=== PATIENT | female | born 1965 | race Two or more races ===

== ENCOUNTER 2024-07-30 06:44 | Inpatient (IN) | payer BC ==
[2024-07-27 12:27] LABS: Urine Bacteria None Seen /hpf (None Seen)
[2024-07-27 13:31] LABS: Urine Blood Negative /uL (Negative); Urine Clarity Clear (Clear); Urine Color Light-Yellow (Yellow); Urine Protein, UAD TRACE (Negative); Urine Specific Gravity 1.018 (1.001-1.035); Urine Urobilinogen Normal (Negative); Urine WBC <1 /hpf (0 - 5); Urine pH 5.5 (5.0-9.0)
[2024-07-27 13:35] LABS: Basophils # (auto) 0.1 10 ^3/uL (0-0.2); Basophils % (auto) 0.9 % (0.0-2.0); Eosinophils # (auto) 0.2 10 ^3/uL (0-0.8); Eosinophils % (auto) 2.5 % (0.0-7.0); Hematocrit 38.7 % (36.0-46.0); Hemoglobin 12.9 g/dL (12.2-16.2); Lymphocytes # (auto) 1.2 10 ^3/uL (0.4-5.4); Lymphocytes % (auto) 17.3 % (10.0-50.0); Mean Corpuscular Hemoglobin 30.6 pg (28.0-32.0); Mean Corpuscular Hgb Conc. 33.4 g/dL (32.0-36.0); Mean Corpuscular Volume 91.7 fL (80.0-100.0); Monocytes # (auto) 0.4 10 ^3/uL (0-1.3); Neutrophils # (auto) 5.2 10 ^3/uL (1.6-8.6); Neutrophils % (auto) 73.3 % (37.0-80.0); Platelet Count (auto) 346 10^3/uL (140-450); Red Blood Cells 4.22 10^6/uL (4.0-5.20); Red Cell Distribution Width 13.6 % (11.8-14.3); White Blood Cell 7.1 10^3/uL (4.4-10.8)
[2024-07-27 13:45] LABS: INR 0.95 (0.9-1.15); Prothrombin Time 10.1 sec (9.3-11.8)
[2024-07-27 13:59] LABS: Alanine Aminotransferase 11 U/L (7-40); Albumin 4.5 g/dL (3.2-4.8); Alkaline Phosphatase 81 U/L (46-116); Anion Gap 6 (5-15); Aspartate Aminotransferase 9 U/L (13-40); BUN/Creatinine Ratio 15.2 (10.0-20.0); Blood Urea Nitrogen 28 mg/dL (9-23); Calcium 9.7 mg/dL (8.7-10.4); Carbon Dioxide 23 mmol/L (20-31); Chloride 113 mmol/L (98-107); Glucose 87 mg/dL (74-106); Sodium 142 mmol/L (136-145)
[2024-07-27 14:00] LABS: Bilirubin, Total 0.3 mg/dL (0.2-1.0); Total Protein 7.2 g/dL (5.7-8.2)
[~2024-07-30] VITALS: Ht 160 cm; Wt 106.8 kg
[~2024-07-30 06:44] MED LIST: AMLO1TAB23 PO; DAPA1TAB4 PO; LISI20TA56 PO
[2024-07-30] MEDS: CEFEPIME 1GM/ 50ML 50 ML IV ONE (07:38)
[2024-07-30] MEDS: ceFAZolin 2 GM/D5W100ml 100 ML IV ONE ×2 (07:46→08:19)
[2024-07-30] MEDS ORDERED: KETOROLAC TROMETH 30 MG/ML 1ML VIAL ONE (08:07)
[2024-07-30] MEDS ORDERED: DexAMETHasone SOD PHOS 10MG/1ML VIAL INJ ONE ×2 (08:07→09:15)
[2024-07-30] MEDS ORDERED: ONDANSETRON HCL 4 MG/2 ML VIAL ONE (08:07)
[2024-07-30] MEDS ORDERED: LIDOCAINE 1% INJ PF 5ML AMP ONE (08:07)
[2024-07-30] MEDS ORDERED: PROPOFOL 10 MG/ML 20 ML IV ONE ×3 (08:08→10:36)
[2024-07-30] MEDS ORDERED: KETAMINE 50mg/ML 1ml syringe ONE (08:08)
[2024-07-30] MEDS ORDERED: GLYCOPYRROLATE 0.2 MG/ML 1ML VIAL ONE (08:08)
[2024-07-30] MEDS: ACETAMINOPHEN IV 1000 MG/100ML (10MG/ML) IV ONE (08:15)
[2024-07-30] MEDS: PREGABALIN CAPSULE 75 MG CAP PO ONE (08:15)
[2024-07-30] MEDS: CELECOXIB 100 MG CAP PO ONE (08:15)
[2024-07-30] MEDS: CELECOXIB 100 MG CAP ONE (08:22)
[2024-07-30] MEDS: TRANEXAMIC ACID 20 ML ONE (09:07)
[2024-07-30] MEDS ORDERED: ONDANSETRON HCL 4 MG/2 ML VIAL IV PRN ×2 (09:30→11:00)
[2024-07-30] MEDS: LACTATED RINGER'S 1,000 ML IV SCH (09:30)
[2024-07-30] MEDS ORDERED: HYDROmorphone HCL 2 MG/ML VL/or syr IV PRN ×2 (09:30→11:00)
[2024-07-30] MEDS ORDERED: NITROGLYCERIN 0.4 MG SL TAB SL PRN (09:30)
[2024-07-30] MEDS ORDERED: MORPHINE SULFATE INJ 2 MG/ml SYRG IV PRN (09:30)
[2024-07-30] MEDS ORDERED: ePHEDrine SULFATE 50 MG/ML AMP ONE (09:58)
[2024-07-30] MEDS: LISINOPRIL 20 MG TAB PO SCH (10:00)
[2024-07-30] MEDS: PANTOPRAZOLE 40 MG/10 ML VIAL INJ IV SCH (10:00)
[2024-07-30] MEDS: DOCUSATE SOD 100 MG CAP PO SCH (10:00)
[2024-07-30] MEDS ORDERED: PATIENTS OWN MEDICATION (Amlodipine Besylate 1 TAB) PO SCH (10:00)
[2024-07-30] MEDS: BUPIVACAINE 0.25% INJ 50ML VIAL ONE (10:15)
[2024-07-30] MEDS: KETOROLAC TROMETH 30 MG/ML 1ML VIAL ONE (10:15)
[2024-07-30] MEDS: MORPHINE SULF PF 5 MG/10 ML VIAL ONE (10:15)
[2024-07-30] MEDS: VANCOMYCIN HCL 1000 MG VL ONE (10:20)
[2024-07-30 10:48] VITALS: PULSE 89; RESP 13; O2SAT 99
[2024-07-30] MEDS ORDERED: NALOXONE HCL 0.4 MG/ML VIAL IV PRN (11:00)
[2024-07-30] MEDS ORDERED: hydrALAZINE HCL 20 MG/ML VL IV PRN (11:00)
[2024-07-30] MEDS ORDERED: FLUMAZENIL 0.1 MG/ML INJ 10ML MDV IV PRN (11:00)
[2024-07-30] MEDS ORDERED: fentaNYL CITRATE 100 MCG/2 ML VL IV PRN (11:00)
[2024-07-30] MEDS ORDERED: ePHEDrine SULFATE 50 MG/ML AMP IV PRN (11:00)
[2024-07-30] MEDS: ACCU-CHEK COMFORT CURVE STRIP VI SCH (11:30)
[2024-07-30] MEDS ORDERED: LABETALOL HCL 20 MG/4 ML VL IV PRN (12:45)
[2024-07-30] MEDS: SOD CHL 0.45% 1,000 ML IV SCH (13:10)
[2024-07-30] MEDS ORDERED: KETOROLAC TROMETH 30 MG/ML 1ML VIAL IV SCH (14:00)
[2024-07-30] MEDS ORDERED: ceFAZolin 2 GM/D5W50ml 50 ML IV SCH (14:00)
[2024-07-30 17:00] VITALS: BP 133/64; PULSE 94; RESP 18; TEMP 97.8; O2SAT 93
[2024-07-30] MEDS: OXYCODONE W/ ACETAMINOPHEN 5/325MG TABLET PO PRN (17:29)
[2024-07-30] MEDS: ceFAZolin 2 GM/D5W50ml 50 ML IV SCH (17:30)
[2024-07-30 22:00] VITALS: BP 137/61; PULSE 74; RESP 16; TEMP 98.1; O2SAT 92
[2024-07-30] MEDS: HYDROmorphone HCL 2 MG/ML VL/or syr IV PRN (22:14)
[2024-07-31 01:00] VITALS: BP 117/60; PULSE 61; RESP 16; TEMP 98; O2SAT 92
[2024-07-31 05:00] VITALS: BP 131/71; PULSE 66; RESP 16; TEMP 97.7; O2SAT 94
[2024-07-31] MEDS: SODIUM CHLOR 0.9% PF (SALINE LOCK) 10ML VIAL/SYR IV SCH (06:08)
[2024-07-31 07:07] LABS: Basophils # (auto) 0 10 ^3/uL (0-0.2); Basophils % (auto) 0.1 % (0.0-2.0); Eosinophils # (auto) 0 10 ^3/uL (0-0.8); Hematocrit 30.8 % (36.0-46.0); Hemoglobin 10.2 g/dL (12.2-16.2); Lymphocytes # (auto) 0.7 10 ^3/uL (0.4-5.4); Lymphocytes % (auto) 5.7 % (10.0-50.0); Mean Corpuscular Hemoglobin 30.4 pg (28.0-32.0); Mean Corpuscular Hgb Conc. 33.1 g/dL (32.0-36.0); Mean Corpuscular Volume 91.9 fL (80.0-100.0); Monocytes # (auto) 0.7 10 ^3/uL (0-1.3); Monocytes % (auto) 5.5 % (0.0-12.0); Neutrophils % (auto) 88.7 % (37.0-80.0); Platelet Count (auto) 276 10^3/uL (140-450); Red Blood Cells 3.35 10^6/uL (4.0-5.20); Red Cell Distribution Width 13.4 % (11.8-14.3); White Blood Cell 12.4 10^3/uL (4.4-10.8)
[2024-07-31 07:25] LABS: Albumin 3.7 g/dL (3.2-4.8); Alkaline Phosphatase 63 U/L (46-116); Anion Gap 7 (5-15); Aspartate Aminotransferase 8 U/L (13-40); BUN/Creatinine Ratio 14.3 (10.0-20.0); Blood Urea Nitrogen 32 mg/dL (9-23); Calcium 9.2 mg/dL (8.7-10.4); Carbon Dioxide 19 mmol/L (20-31); Chloride 109 mmol/L (98-107); Glucose 114 mg/dL (74-106); Potassium 5.2 mmol/L (3.5-5.1)
[2024-07-31 07:26] LABS: Bilirubin, Total 0.2 mg/dL (0.2-1.0)
[2024-07-31 07:27] LABS: Alanine Aminotransferase < 9 U/L (7-40); Sodium 135 mmol/L (136-145)
[2024-07-31 08:00] VITALS: PULSE 70
[2024-07-31] MEDS: ENOXAPARIN SOD 40 MG/0.4 ML SYRINGE SC SCH (09:08)
[2024-07-31] MEDS: CEFEPIME 1GM/ 50ML 50 ML IV SCH (09:09)
[2024-07-31] MEDS: amLODIPine BESYLATE 5 MG TAB PO SCH (09:53)
[2024-07-31] MEDS ORDERED: amLODIPine BESYLATE 5 MG TAB PO SCH (10:00)
[2024-07-31 13:37] VITALS: BP 141/54; TEMP 36.5
[2024-07-31] MEDS: SODIUM ZIRCONIUM CYCL 10 GM PAK PO ONE (14:16)
[2024-07-31] MEDS: oxyCODONE HCL 5MG TAB PO PRN (14:16)
[2024-07-31 17:00] VITALS: BP 123/58; PULSE 73; RESP 20; TEMP 97.8; O2SAT 96
[2024-07-31 20:57] VITALS: BP 106/35; PULSE 73; RESP 18; TEMP 98.5; O2SAT 98
[2024-07-31] MEDS: OXYCODONE W/ ACETAMINOPHEN 5/325MG TABLET PO ONE (22:40)
[2024-08-01 01:00] VITALS: BP 130/49; PULSE 72; RESP 18; TEMP 98.2; O2SAT 95
[2024-08-01 05:00] VITALS: BP 119/58; PULSE 75; RESP 18; TEMP 97.5; O2SAT 95
[2024-08-01 06:13] LABS: Hematocrit 27.2 % (36.0-46.0); Hemoglobin 9.1 g/dL (12.2-16.2)
[2024-08-01 06:33] LABS: Anion Gap 5 (5-15); Carbon Dioxide 20 mmol/L (20-31); Chloride 112 mmol/L (98-107); Potassium 4.7 mmol/L (3.5-5.1); Sodium 137 mmol/L (136-145)
[2024-08-01 06:34] LABS: Calcium 8.9 mg/dL (8.7-10.4)
[2024-08-01 06:39] LABS: BUN/Creatinine Ratio 14.9 (10.0-20.0); Blood Urea Nitrogen 33 mg/dL (9-23); Glucose 92 mg/dL (74-106)
[2024-08-01 09:00] VITALS: BP 132/81; PULSE 66; RESP 16; TEMP 98.1; O2SAT 97
[2024-08-01 13:00] VITALS: BP 130/66; PULSE 71; RESP 18; TEMP 98; O2SAT 95
== END 2024-08-01 18:00 | disposition home or self-care (01) | DRG 470 ==
LOC: SUR 06:44 → OVERFLOW 10:56 → WEST WING 16:30
PROVIDERS: ADMIT Orthopaedic Surgery Adult Reconstructive Orthopaedic Surgery; ATTEND Internal Medicine
PROC: 0SRC0J9 Replacement of Right Knee Joint with Synthetic Substitute, Cemented, Open Approach (ICD-10-PCS; principal; 2024-07-30 09:20)
DX: M17.11 Unilateral primary osteoarthritis, right knee (principal); Z68.41 Body mass index [BMI] 40.0-44.9, adult; N17.9 Acute kidney failure, unspecified; N18.32 Chronic kidney disease, stage 3b; I12.9 Hypertensive chronic kidney disease with stage 1 through stage 4 chronic kidney disease, or unspecified chronic kidney disease; E66.9 Obesity, unspecified; E87.5 Hyperkalemia; Z88.3 Allergy status to other anti-infective agents
CPT/HCPCS: 36415; 71045; 73562; 80048; 80053; 81001; 82962; 85014; 85018; 85025; 85610; 85730; 86850; 86900; 86901; 97110; 97116; 97163; 97530; G0378; J0131; J1100; J1885; J2405; J2470; J2704; J3490

== ENCOUNTER 2024-12-10 06:29 | Observation (INO) | payer BC ==
[~2024-12-10] VITALS: Ht 160 cm; Wt 116.0 kg
[~2024-12-10 06:29] MED LIST changes: +ALLO100T PO
[2024-12-10] MEDS ORDERED: PHENYLEPHRINE HCL 10 MG/ML VL ONE (06:48)
[2024-12-10] MEDS ORDERED: fentaNYL CITRATE 100 MCG/2 ML VL ONE (06:49)
[2024-12-10] MEDS ORDERED: PROPOFOL 10 MG/ML 20 ML IV ONE ×2 (08:02→08:04)
[2024-12-10] MEDS ORDERED: MIDAZOLAM HCL 2MG/2ML 2ml VIAL (1mg/ml) ONE (08:05)
[2024-12-10] MEDS: CELECOXIB 100 MG CAP PO ONE (08:30)
[2024-12-10] MEDS: ACETAMINOPHEN IV 1000 MG/100ML (10MG/ML) IV ONE (08:30)
[2024-12-10] MEDS: PREGABALIN CAPSULE 75 MG CAP PO ONE (08:30)
[2024-12-10] MEDS: ACETAMINOPHEN IV 100 ML IV ONE (08:45)
[2024-12-10] MEDS: CEFEPIME 1GM/ 50ML 50 ML IV ONE (09:00)
[2024-12-10] MEDS: ceFAZolin 2 GM/D5W100ml 100 ML IV ONE ×2 (09:00→14:36)
[2024-12-10] MEDS ORDERED: ePHEDrine SULFATE 50 MG/ML AMP ONE (09:09)
[2024-12-10] MEDS: TRANEXAMIC ACID 20 ML ONE (09:30)
[2024-12-10] MEDS: VANCOMYCIN HCL 1000 MG VL ONE (10:00)
[2024-12-10] MEDS: MORPHINE SULF PF 5 MG/10 ML VIAL ONE (10:09)
[2024-12-10] MEDS: BUPIVACAINE 0.25% INJ 50ML VIAL ONE (10:09)
[2024-12-10] MEDS: KETOROLAC TROMETH 30 MG/ML 1ML VIAL ONE (10:09)
[2024-12-10] MEDS ORDERED: NITROGLYCERIN 0.4 MG SL TAB SL PRN (10:15)
[2024-12-10] MEDS ORDERED: HYDROmorphone HCL 2 MG/ML VL/or syr IV PRN ×2 (10:15→10:45)
[2024-12-10] MEDS ORDERED: ONDANSETRON HCL 4 MG/2 ML VIAL IV PRN (10:15)
[2024-12-10] MEDS ORDERED: MORPHINE SULFATE INJ 2 MG/ml SYRG IV PRN (10:15)
[2024-12-10 10:31] VITALS: PULSE 80; RESP 13; O2SAT 97
[2024-12-10] MEDS ORDERED: ACETAMINOPHEN IV 1000 MG/100ML (10MG/ML) IV PRN (10:45)
[2024-12-10] MEDS ORDERED: ONDANSETRON HCL 4 MG/2 ML VIAL IV ONE (10:45)
--- NOTE | 2024-12-10 11:48 | DVH ---
EXAM: XY L KNEE 3V XRAY CLINICAL INDICATION: S/P SURGERY TECHNIQUE: XY L KNEE 3V XRAY Comparison: XY R KNEE 3V XRAY on DOS: 07/30/24 FINDINGS/IMPRESSION: There is no evidence of acute fracture or dislocation. Left total knee arthroplasty. Surgical skin williams are present.
[2024-12-10] MEDS: SODIUM CHLOR 0.9% PF (SALINE LOCK) 10ML VIAL/SYR IV SCH (14:00)
[2024-12-10] MEDS: ceFAZolin 2 GM/D5W50ml 50 ML IV SCH (14:28)
[2024-12-10] MEDS: ceFAZolin 1GM/50ML 0 ML IV ONE (14:30)
--- NOTE | 2024-12-10 14:38 | DVHHP2 ---
Review of Systems Allergies: Coded Allergies: Sulfamethoxazole w/Trimethoprim (Verified Allergy, Intermediate, Rash, 07/27/24) Medications Current Medications Medications Dose Ordered Sig/Mike Route Start Time Stop Time Status Last Admin Dose Admin Lisinopril 20 mg DAILY PO 12/11/24 10:00 Amlodipine Besylate 10 mg DAILY PO 12/11/24 10:00 Lactated Ringer's 1,000 ml @ 100 mls/hr Q10H IV 12/10/24 10:15 Sodium Chloride 10 ml Q8HR IV 12/10/24 14:00 Oxycodone/ Acetaminophen 1 tab Q4HP PRN PO 12/10/24 10:15 Hydromorphone HCl 1 mg Q2HP PRN IV 12/10/24 10:15 Oxycodone HCl 10 mg Q12HR PO 12/10/24 22:00 Ondansetron HCl 4 mg Q6HP PRN IV 12/10/24 10:15 Docusate Sodium 100 mg Q12HR PO 12/10/24 22:00 Enoxaparin Sodium 40 mg DAILY SC 12/11/24 10:00 Nitroglycerin 0.4 mg Q5MINP PRN SL 12/10/24 10:15 Morphine Sulfate 2 mg Q30M PRN IV 12/10/24 10:15 Cefazolin Sodium/ Dextrose 50 ml @ 50 mls/hr Q8HR IV 12/10/24 14:00 12/11/24 06:59 12/10/24 14:37 50 MLS/HR Cefepime HCl 50 ml @ 12.5 mls/hr DAILY IV 12/11/24 10:00 Exam Vital Signs Vital Signs Date Time Temp Pulse Resp B/P (MAP) Pulse Ox O2 Delivery O2 Flow Rate FiO2 12/10/24 12:15 76 79 101/51 (68) 12/10/24 11:45 97 12/10/24 10:31 97.2 97.2 12/10/24 10:31 Mask 6.0 97 Assessment/Plan Assessment/Plan see dictated note Plan discussed with: Patient Date of Service: Dec 10, 2024 Billing Provider: BELEN JOVEL MD Common Visit Codes: [id number] INP/OBS CARE (HIGH) BELEN JOVEL MD Dec 10, 2024 14:38
--- NOTE | 2024-12-10 15:02 | DVHHP ---
ADMIT DATE: 12/10/2024 HISTORY OF PRESENT ILLNESS: The patient is a 59-year-old lady who was admitted after she underwent surgery on the left knee for DJD of the knee. The patient at this time denies any pain. No chest pain or shortness of breath. No nausea or vomiting. REVIEW OF SYSTEMS: Review of rest of systems are otherwise currently negative. PAST MEDICAL HISTORY: Significant for hypertension, chronic kidney disease, gout. MEDICATIONS: She takes allopurinol, Norvasc, Farxiga and lisinopril. ALLERGIES: BACTRIM. SOCIAL HISTORY: Denies smoking or alcohol. Lives at home with family. FAMILY HISTORY: Negative. PHYSICAL EXAMINATION: GENERAL: The patient is awake, alert. VITAL SIGNS: Temperature of 97.2, pulse is 75 per minute, blood pressure 123/59. SHEENT: Unremarkable. NECK: There is no JVD, no pedal edema. LUNGS: Equal bilaterally. No added sounds. CARDIOVASCULAR SYSTEM: S1, S2 is regular, no murmurs. ABDOMEN: Soft. There is no organomegaly. NEUROLOGIC: Nonfocal. MUSCULOSKELETAL: There is a dressing at the site of the left knee surgery. ASSESSMENT AND PLAN: * Chronic kidney disease, stage 3. The patient's kidney function will be monitored. * Hypertension. * Gout. * Obesity. * Status post left knee surgery for degenerative joint disease of the knee. The patient will be placed on physical therapy and deep venous thrombosis prophylaxis. MD KATIUSKA Branham/JANE TID: [id number] RECEIPT: [id number]
[2024-12-10] MEDS: HYDROmorphone HCL 2 MG/ML VL/or syr IV PRN (15:38)
[2024-12-10 16:30] VITALS: BP 114/66; PULSE 85; RESP 18; O2SAT 96
[2024-12-10] MEDS: oxyCODONE ER 10 MG TAB PO SCH (16:46)
[2024-12-10 20:00] VITALS: PULSE 85; RESP 18; O2SAT 96
[2024-12-10] MEDS: LACTATED RINGER'S 1,000 ML IV SCH (20:15)
[2024-12-10] MEDS: DOCUSATE SOD 100 MG CAP PO SCH (20:53)
[2024-12-10] MEDS: OXYCODONE W/ ACETAMINOPHEN 5/325MG TABLET PO PRN (20:54)
[2024-12-10 21:00] VITALS: BP 123/58; PULSE 84; RESP 20; TEMP 97.5; O2SAT 97
[2024-12-11] VITALS (7 sets, daily range): BP systolic 89–125; BP diastolic 44–71; PULSE 68–87; RESP 17–20; TEMP 97.5–98.1; O2SAT 94–98
[2024-12-11 07:17] LABS: Basophils # (auto) 0 10 ^3/uL (0-0.2); Basophils % (auto) 0.4 % (0.0-2.0); Eosinophils # (auto) 0.1 10 ^3/uL (0-0.8); Eosinophils % (auto) 1.7 % (0.0-7.0); Hematocrit 30.6 % (36.0-46.0); Hemoglobin 9.8 g/dL (12.2-16.2); Lymphocytes # (auto) 0.6 10 ^3/uL (0.4-5.4); Lymphocytes % (auto) 9.7 % (10.0-50.0); Mean Corpuscular Hgb Conc. 32.1 g/dL (32.0-36.0); Mean Corpuscular Volume 93.3 fL (80.0-100.0); Monocytes # (auto) 0.5 10 ^3/uL (0-1.3); Monocytes % (auto) 7.3 % (0.0-12.0); Neutrophils # (auto) 5.1 10 ^3/uL (1.6-8.6); Neutrophils % (auto) 80.9 % (37.0-80.0); Nucleated Red Blood Cells % 0.1 %; Platelet Count (auto) 275 10^3/uL (140-450); Red Blood Cells 3.28 10^6/uL (4.0-5.20); White Blood Cell 6.3 10^3/uL (4.4-10.8)
[2024-12-11 07:23] LABS: Albumin 3.8 g/dL (3.2-4.8); Alkaline Phosphatase 70 U/L (46-116); Anion Gap 9 (5-15); BUN/Creatinine Ratio 13.3 (10.0-20.0); Bilirubin, Total 0.3 mg/dL (0.2-1.0); Calcium 8.7 mg/dL (8.7-10.4); Carbon Dioxide 21 mmol/L (20-31); Chloride 103 mmol/L (98-107); Total Protein 6.2 g/dL (5.7-8.2)
[2024-12-11 07:43] LABS: Blood Urea Nitrogen 38 mg/dL (9-23); Glucose 151 mg/dL (74-106); Sodium 133 mmol/L (136-145)
[2024-12-11 07:45] LABS: Alanine Aminotransferase < 9 U/L (7-40); Aspartate Aminotransferase 11 U/L (13-40)
[2024-12-11 07:47] LABS: Potassium 5.7 mmol/L (3.5-5.1)
--- NOTE | 2024-12-11 08:04 | DVHDS2 ---
Discharge Summary Date of Admission Dec 10, 2024 at 10:09 Date of Discharge: Dec 11, 2024 Wounds: 1. You will likely have a gel-type dressing over your wound, you may keep this on for 7-14 days after leaving the hospital until your first post-op visit, unless it becomes soiled or your skin becomes irritated. If a wound vac dressing is placed on your knee this is to be left in place for one week and will be changed as needed. After your remove the dressing or wound vac, the home health nurse may place clean dry dressing over your wound. Keep wound covered, clean and dry for two weeks. 2. Farhad will be removed during your initial post-op visit. If you have concerns about our wound, please call the office immediately. If nervous about staple removal can take pain pill one hour prior to appointment. 3. If there is drainage from your wound, change the dressing daily until it stops. If drainage lasts more than 10 days, call our office. 4. Low grade (up to 100 degrees) fever is common for the first week after surgery. You should take your temperature daily. If you have fevers of 101 or more, please call the office. Labs/Diagnostic Data: Laboratory Results Test 12/11/24 05:50 White Blood Count 6.3 10^3/uL (4.4-10.8) Red Blood Count 3.28 10^6/uL (4.0-5.20) Hemoglobin 9.8 g/dL (12.2-16.2) Hematocrit 30.6 % (36.0-46.0) Mean Corpuscular Volume 93.3 fL (80.0-100.0) Mean Corpuscular Hemoglobin 30.0 pg (28.0-32.0) Mean Corpuscular Hemoglobin Concent 32.1 g/dL (32.0-36.0) Red Cell Distribution Width 17.0 % (11.8-14.3) Platelet Count 275 10^3/uL (140-450) Mean Platelet Volume 8.0 fL (6.9-10.8) Neutrophils (%) (Auto) 80.9 % (37.0-80.0) Lymphocytes (%) (Auto) 9.7 % (10.0-50.0) Monocytes (%) (Auto) 7.3 % (0.0-12.0) Eosinophils (%) (Auto) 1.7 % (0.0-7.0) Basophils (%) (Auto) 0.4 % (0.0-2.0) Neutrophils # (Auto) 5.1 10 ^3/uL (1.6-8.6) Lymphocytes # (Auto) 0.6 10 ^3/uL (0.4-5.4) Monocytes # (Auto) 0.5 10 ^3/uL (0-1.3) Eosinophils # (Auto) 0.1 10 ^3/uL (0-0.8) Basophils # (Auto) 0 10 ^3/uL (0-0.2) Nucleated Red Blood Cells 0.1 % Sodium Level 133 mmol/L (136-145) Potassium Level 5.7 mmol/L (3.5-5.1) Chloride Level 103 mmol/L (98-107) Carbon Dioxide Level 21 mmol/L (20-31) Anion Gap 9 (5-15) Blood Urea Nitrogen 38 mg/dL (9-23) Creatinine 2.85 mg/dL (0.550-1.02) Glomerular Filtration Rate Calc 18 mL/min (>90) BUN/Creatinine Ratio 13.3 (10.0-20.0) Serum Glucose 151 mg/dL (74-106) Calcium Level 8.7 mg/dL (8.7-10.4) Total Bilirubin 0.3 mg/dL (0.2-1.0) Aspartate Amino Transferase (AST) 11 U/L (13-40) Alanine Aminotransferase (ALT) < 9 U/L (7-40) Alkaline Phosphatase 70 U/L (46-116) Total Protein 6.2 g/dL (5.7-8.2) Albumin 3.8 g/dL (3.2-4.8) Other Laboratory Tests 12/11/24 05:50 Brief Hx & Hospital Course: s/p total knee arthroplasty Condition at Discharge: Good Final Diagnosis/Problems List knee osteoarthritis Discharge Disposition: Home Discharge Instruct/Medications Diet: Regular Diet comment: May advance diet as tolerated, drink plenty of fluids. Avoid alcohol while taking narcotics Activity: See Comment Activity comment: 1.You can bear as much weight as you tolerate on your knee unless specifically instructed otherwise. You may use the walking aid which you were discharged with and switch to a cane whenever you feel comfortable doing so. You should use an assistive device until you can walk comfortably without it. Keep in mind that every patient moves at their own speed of recovery so take your time. 2.A physical therapist will visit you at home. 3.Use CPM machine as instructed (6 hours a day) and increase flexion by 5 degrees daily. 4.High impact activity such as jumping, aerobics, tennis, and skiing are not permitted during the first 3 months after surgery. These activities can contribute to accelerated wear and should be done with caution after this time. Discuss this with your surgeon if you have questions. 5.Although a bath or whirlpool is NOT permitted during the first 2-3 weeks, you may shower as soon as you get home from the hospital provided there is no wound drainage. Place a dressing or covering over the wound when you shower. 6.Swimming is not permitted until the wound is healed, which typically occurs approximately 3-4 weeks after surgery. Follow Up/Referral: 1.Driving is not permitted within the first 2 weeks. 2.Your first postoperative visit will take place 2 weeks after discharge. Please call the office once you are home from the hospital to arrange this appointment. 3.Antibiotic preventative treatment is required before dental or other invasive procedures. Please ask your surgeon about this at your first postoperative visit. If you experience chest pain, shortness of breath or severe painful calf swelling, go to the nearest emergency room to be evaluated. Please call our office once your situation is stabilized. Medications: 1.You will be discharged with pain medication, a blood thinner (unless you were previously on a blood thinner prior to surgery) and stool softener. Please follow the instructions regarding these medications as provided by your nurse at the hospital upon discharge. 2.Blood clots in the leg are a known complication of surgery. It is very important that you take the medication to protect against clots. Depending on what you are discharged on typically it is Lovenox 40mg daily for 2 weeks or Aspirin 81mg twice daily for 4 weeks. After you finish this, you should then take baby Aspirin (81mg) once daily for 2 weeks. 3.You should restart all of your prescription medications once discharged from the hospital/surgery center unless specifically instructed otherwise. 4.Herbal supplements may be restarted 2 weeks after surgery. 5.If you have been given Coumadin as a blood thinner, please follow up with your collections professional during the first two weeks after surgery to review medications and overall medical well-being. 6.Please note that narcotic pain medication may cause constipation. Please remember to take stool softeners (Colace) when using narcotics to help reduce the change of constipation. You should not use alcohol together with narcotic medication. Discharge Statement: "Patient was advised to return to the ER or call 911 if any headaches, dizziness, shortness of breath, chest pain, abdominal pain, bleeding, fevers, or worsening of medical condition. Patient was counseled about treatment plan, medications, possible side effects, patientverbalized understanding. All questions were answered to the best of my ability. This discharge took greater then 30 minutes in planning, reviewing documentation, counseling the patient, and discussing with other team members." ASSESSMENT ASSESSMENT Assessment JALEEL MORRIS NP Dec 11, 2024 08:04
[2024-12-11] MEDS: SODIUM ZIRCONIUM CYCL 10 GM PAK PO ONE (09:20)
[2024-12-11] MEDS: ENOXAPARIN SOD 40 MG/0.4 ML SYRINGE SC SCH (09:26)
[2024-12-11] MEDS: CEFEPIME 1GM/ 50ML 50 ML IV SCH (09:30)
[2024-12-11] MEDS: amLODIPine BESYLATE 5 MG TAB PO SCH (10:00)
[2024-12-11] MEDS ORDERED: LISINOPRIL 20 MG TAB PO SCH (10:00)
--- NOTE | 2024-12-11 12:12 | DVHPN2 ---
Progress Note Date Seen: Dec 11, 2024 Medical Necessity Reason Pt with a Central, PICC or Fol: No Subjective Patient reports: No new complaints Review of Systems: HEENT:Normal, CVS:Normal, RESPIRATORY:Normal, GI:Normal, :Normal, MSK:Normal, NEURO:Normal Objective vital signs Vital Sign Date Time Temp Pulse Resp B/P (MAP) Pulse Ox O2 Delivery O2 Flow Rate FiO2 12/11/24 10:00 90/44 12/11/24 09:59 74 16 12/11/24 09:19 98.0 97 98.0 12/10/24 20:00 Room Air* 0 21 Total Intake and Output 12/10/24 12/10/24 12/11/24 15:00 23:00 07:00 Intake Total 370 ml 400 ml Balance 370 ml 400 ml medications Current Medications Medications Dose Ordered Sig/Mike Route Start Time Stop Time Status Last Admin Dose Admin Amlodipine Besylate 10 mg DAILY PO 12/11/24 10:00 Sodium Chloride 10 ml Q8HR IV 12/10/24 14:00 12/11/24 06:14 10 ML Oxycodone/ Acetaminophen 1 tab Q4HP PRN PO 12/10/24 10:15 12/11/24 05:41 1 TAB Oxycodone HCl 10 mg Q12HR PO 12/10/24 22:00 12/10/24 16:46 10 MG Ondansetron HCl 4 mg Q6HP PRN IV 12/10/24 10:15 Docusate Sodium 100 mg Q12HR PO 12/10/24 22:00 12/11/24 09:24 100 MG Enoxaparin Sodium 40 mg DAILY SC 12/11/24 10:00 12/11/24 09:26 40 MG Nitroglycerin 0.4 mg Q5MINP PRN SL 12/10/24 10:15 Morphine Sulfate 2 mg Q30M PRN IV 12/10/24 10:15 Cefepime HCl 50 ml @ 12.5 mls/hr DAILY IV 12/11/24 10:00 12/11/24 09:30 12.5 MLS/HR Hydromorphone HCl 1 mg Q3HP PRN IV 12/10/24 14:45 12/11/24 09:29 1 MG Examination: GENERAL:Normal, HEENT:Normal, NECK:Normal, LUNGS:Normal, CVS:Normal, ABDOMEN:Normal, MSK:Normal, SKIN:Normal, NEURO:Normal, :Normal laboratory and microbiology Laboratory Tests 12/11/24 05:50 Test 12/11/24 05:50 Range/Units Serum Glucose 151 H 74-106 mg/dL Problem List/Assessment/Plan Problem List/Assessment/Plan * Chronic kidney disease, stage 3. The patient's kidney function will be monitored. * Hyperkalemia: lokelma, repeat K * Hypertension. * Gout. * Obesity. * Status post left knee surgery for degenerative joint disease of the knee. The patient will be placed on physical therapy and deep venous thrombosis prophylaxis. advance care planning- full code- time spent 18 mins Plan discussed with: Patient My Orders My Orders Orders - BELEN JOVEL MD Procedure Category Date Status Time Hydromorphone PHA 12/10/24 In Process Injection (Dilaudid 14:45 Discharge DISCHARGE 12/11/24 Verified 12:04 NS PHA 12/11/24 Verified 12:15 Sodium Zirconium PHA 12/11/24 Verified Cyclosilicate 14:00 Urinalysis LAB 12/11/24 Uncollected 12:04 Basic Metabolic Panel LAB 12/12/24 Verified 06:00 Complete Blood Count LAB 12/12/24 Verified 06:00 * Environmental Resource Specialist CONS 12/11/24 Verified Consult Date of Service: Dec 11, 2024 Billing Provider: BELEN JOVEL MD Common Visit Codes: [id number] INP/OBS CARE(HIGH) Secondary Visit Codes: [id number] CARE PLAN 30 MINUTES BELEN JOVEL MD Dec 11, 2024 12:12
[2024-12-11] MEDS: SODIUM CHLORIDE 0.9% 1,000 ML IV SCH (14:44)
[2024-12-11] MEDS: SODIUM ZIRCONIUM CYCL 10 GM PAK PO SCH (14:52)
--- NOTE | 2024-12-11 15:13 | DVHOP2 ---
Operative Report - 2 Report Details Date: 12/11/24 Preop Diagnosis: Left knee osteoarthritis Postop Diagnosis: Left knee osteoarthritis Surgeon: Jovan Henry MD Anesthesiologist: Lida GIANG Anesthesia: Regional Implant: [employer] Uncemented CR Legion Size 4 CR Tibia size 2 12 mm deep dish insert 29 mm round patella Consent: The patient was informed of the risks and benefits of the procedure. These include but are not limited to complications of anesthesia, postoperative infection, incomplete relief of symptoms, recurrence of symptoms, damage to bl ood vessels, nerves and tendons, deep venous thrombosis, pulmonary embolism and possible need for repeat surgery in the future. Estimated Blood Loss: 50 cc Name of Procedure Performed Left total knee arthroplasty using computer navigation Procedure Details Procedure Details: FINDINGS: degenerative disease with grade IV changes with varus deformity INDICATION: This patient has failed non-operative treatments for knee arthritis and is now indicated for a total knee replacement. Preoperatively in the waiting area as well as in the office, I had a long discussion with the patient regarding the plan, the expected outcome, the risks, benefits, and alternatives of surgery. The risks include, but are not limited to, infection (which may require future surgery and removal of implants) , bleeding (which may require a transfusion), damage to nerves, arteries, veins, tendons, muscles and other adjacent structures. Also discussed the possibilities of intraoperative fractures, implant loosening, heterotopic bone formation, and revision for variety of reasons, and medical complications etc. This was discussed at length and consent has been obtained. DESCRIPTION OF PROCEDURE: In the preoperative holding area, the consent was reviewed and the appropriate extremity was verified by the patient and marked with my initials. The patient was then transferred to the operating theatre. Appropriate anesthesia was induced. All bony prominences were well padded. A time out was performed verifying the side and site of surgery according to standard protocol. Preoperative antibiotics were given 10 minutes prior to tourniquet inflation. Tranexamic was given. A well padded thigh tourniquet was applied. The extremity was then prepped and draped in the usual sterile fashion. The extremity was exsanguinated and the tourniquet was inflated. We then made a mid-line incision, which we continued to the underlying capsular tissue. We performed a medial parapatellar arthrotomy. We periosteally exposed the proximal tibia, excised the anterior fat pad and synovium from the distal aspect of the femur. We then subluxed the patella and brought the knee up into flexion. The lateral meniscus, ACL, and PCL were released. We used the appropriate guide with attached computer navigation to secure the distal femoral cutting block to the femur with pins and completed the distal femoral cut in 0 degrees to the mechanical axis with an oscillating saw. We removed the distal f emoral cutting block and turned our attention to the tibia. We used the extramedullary tibial alignment guide with computer navigation to secure the proximal tibial cutting block to the tibia with pins, setting it for a 1mm cut from the more involved side, medially and completed the proximal tibial cut. We then used the spacer block and alignment alda to check the varus- valgus angle of our cuts and the extension gap. Patient noted to be tight medially that was tight so medial release done. The knee was then balanced in extension to varus/valgus stress. We marked our femoral anatomy, including Gibson's line and the epicondylar axis. Using that as a rotational guide, we used the sizing guide to size our femur properly, using a stylus to ensure there would be no notching. We then used the AP cutting guide to make our anterior and posterior cuts and chamfer cuts with an oscillating saw. We again checked the flexion and extension gaps and coronal balancing. Next, we sized our tibia and secured a baseplate with appropriate rotation with pins. We placed a trial femur in position and completed preparation of the notch with reamers and box osteotome and placed a trial notch in position. We used trials to choose our liner size and then placed the liner in place and reduced the knee. We used an oscillating saw to resurface the patella, and used a guide to choose the button size and completed patella preparation with the drill. We then placed a trial button in place. At this point, we checked our seven parameters: 1) Limb alignment 2) Extension 3) Flexion against gravity 4) Flexion stability 5) Varus-valgus balancing 6) Component rotation 7) Patella tracking We were satisfied with these and removed all trials with the exception of the baseplate. We completed preparation of the tibia with the appropriate reamer and keel impactor and then removed the baseplate. We placed a bone plug in the distal femur and then irrigated and dried all bony surfaces and injected our pain cocktail. We thumb impacted into the proximal tibia, distal femur and patella and impacted our tibial, femoral and patellar components into position. We impacted our liner and reduced the knee and held it with axial loading. We did a luan-articular cocktail block. We released the tourniquet and achieved hemostasis where necessary. A dilute betadine solution (17.5mL in 500mL saline) was used to wash the joint and left to sit for 3 minutes. This was then irrigated out with copious amounts of pulse lavage. We sprinkled 1g vancomycin powder below the fascia and 1g above the fascia. We copiously irrigated the knee. We re-checked our seven parameters. We closed our capsular incision with a PDS style suture. We irrigated further. We closed the subcutaneous tissue with Vicryl suture and re-approximated the skin with [place]. We verified all lower extremity compartments were soft and compressible and that we had intact distal pulses. We wrapped the extremity in sterile Webril and allen bandage. The patient was transferred to the recovery room in stable condition. Condition Good Disposition Home JOVAN HENRY MD Dec 11, 2024 15:13
[2024-12-12] VITALS (7 sets, daily range): BP systolic 98–132; BP diastolic 35–61; PULSE 83–104; RESP 14–19; TEMP 97.9–98.3; O2SAT 93–97
[2024-12-12 06:57] LABS: Basophils # (auto) 0 10 ^3/uL (0-0.2); Eosinophils # (auto) 0.2 10 ^3/uL (0-0.8)
[2024-12-12 07:00] LABS: Basophils % (auto) 0.3 % (0.0-2.0); Eosinophils % (auto) 2.9 % (0.0-7.0); Hemoglobin 8.5 g/dL (12.2-16.2); Lymphocytes # (auto) 0.6 10 ^3/uL (0.4-5.4); Lymphocytes % (auto) 7.9 % (10.0-50.0); Mean Corpuscular Hemoglobin 31.6 pg (28.0-32.0); Mean Corpuscular Hgb Conc. 33.9 g/dL (32.0-36.0); Mean Corpuscular Volume 93.2 fL (80.0-100.0); Monocytes # (auto) 0.6 10 ^3/uL (0-1.3); Monocytes % (auto) 8.1 % (0.0-12.0); Neutrophils # (auto) 6.4 10 ^3/uL (1.6-8.6); Neutrophils % (auto) 80.8 % (37.0-80.0); Platelet Count (auto) 195 10^3/uL (140-450); Red Blood Cells 2.68 10^6/uL (4.0-5.20); Red Cell Distribution Width 16.8 % (11.8-14.3); White Blood Cell 7.9 10^3/uL (4.4-10.8)
[2024-12-12 07:14] LABS: Chloride 103 mmol/L (98-107); Potassium 5.1 mmol/L (3.5-5.1)
[2024-12-12 07:15] LABS: Anion Gap 9 (5-15); Carbon Dioxide 19 mmol/L (20-31); Sodium 131 mmol/L (136-145)
[2024-12-12 07:16] LABS: Calcium 8.4 mg/dL (8.7-10.4)
[2024-12-12 07:22] LABS: Blood Urea Nitrogen 44 mg/dL (9-23); Glucose 117 mg/dL (74-106)
--- NOTE | 2024-12-12 11:20 | DVHPN2 ---
Progress Note Date Seen: Dec 12, 2024 Medical Necessity Reason Pt with a Central, PICC or Fol: No Subjective Patient reports: No new complaints Review of Systems: HEENT:Normal, CVS:Normal, RESPIRATORY:Normal, GI:Normal, :Normal, MSK:Normal, NEURO:Normal Objective vital signs Vital Sign Date Time Temp Pulse Resp B/P (MAP) Pulse Ox O2 Delivery O2 Flow Rate FiO2 12/12/24 11:18 95 19 115/65 12/12/24 08:56 97.9 94 97.9 12/12/24 08:00 Room Air* 0 21 Total Intake and Output 12/11/24 12/11/24 12/12/24 15:00 23:00 07:00 Intake Total 50 ml 760 ml 725 ml Balance 50 ml 760 ml 725 ml medications Current Medications Medications Dose Ordered Sig/Mike Route Start Time Stop Time Status Last Admin Dose Admin Sodium Chloride 10 ml Q8HR IV 12/10/24 14:00 12/12/24 06:03 10 ML Oxycodone/ Acetaminophen 1 tab Q4HP PRN PO 12/10/24 10:15 12/12/24 06:40 1 TAB Oxycodone HCl 10 mg Q12HR PO 12/10/24 22:00 12/12/24 09:38 10 MG Ondansetron HCl 4 mg Q6HP PRN IV 12/10/24 10:15 Docusate Sodium 100 mg Q12HR PO 12/10/24 22:00 12/12/24 09:36 100 MG Enoxaparin Sodium 40 mg DAILY SC 12/11/24 10:00 12/12/24 09:36 40 MG Nitroglycerin 0.4 mg Q5MINP PRN SL 12/10/24 10:15 Morphine Sulfate 2 mg Q30M PRN IV 12/10/24 10:15 Cefepime HCl 50 ml @ 12.5 mls/hr DAILY IV 12/11/24 10:00 12/12/24 09:36 12.5 MLS/HR Hydromorphone HCl 1 mg Q3HP PRN IV 12/10/24 14:45 12/12/24 11:18 1 MG Sodium Chloride 1,000 ml @ 75 mls/hr [id number] IV 12/11/24 12:15 12/12/24 09:46 75 MLS/HR Zirconium Oxide 10 gm Q8HR PO 12/11/24 14:00 12/12/24 06:03 10 GM Examination: GENERAL:Normal, HEENT:Normal, NECK:Normal, LUNGS:Normal, CVS:Normal, ABDOMEN:Normal, MSK:Normal, MSK:Abnormal (left knee dressing), SKIN:Normal, NEURO:Normal, :Normal laboratory and microbiology Laboratory Tests 12/12/24 06:09 Test 12/12/24 06:09 Range/Units Serum Glucose 117 H 74-106 mg/dL Problem List/Assessment/Plan Problem List/Assessment/Plan * Chronic kidney disease, stage 3. The patient's kidney function will be monitored. * Hyperkalemia: lokelma, repeat K * Hypertension. * Gout. * Obesity. * Status post left knee surgery for degenerative joint disease of the knee. The patient will be placed on physical therapy and deep venous thrombosis prophylaxis. advance care planning- full code- time spent 18 mins Plan discussed with: Patient My Orders My Orders Orders - BELEN JOVEL MD Procedure Category Date Status Time Discharge DISCHARGE 12/11/24 Transmitted 12:04 Sodium Chloride 0.9% PHA 12/11/24 In Process 12:15 Sodium Zirconium PHA 12/11/24 In Process Cyclosilicate 14:00 Urinalysis LAB 12/11/24 Uncollected 12:04 * Sheet Metal Duct Installer Helper CONS 12/11/24 Transmitted Consult Date of Service: Dec 12, 2024 Billing Provider: BELEN JOVEL MD Common Visit Codes: [id number] INP/OBS CARE(HIGH) BELEN JOVEL MD Dec 12, 2024 11:20
[2024-12-12] MEDS: LACTULOSE 20Gm/30ML SOLN PO ONE (11:30)
[2024-12-12] MEDS: DOCUSATE SOD 100 MG CAP PO ONE (12:32)
[2024-12-12] MEDS: SODIUM ZIRCONIUM CYCL 10 GM PAK PO SCH (13:48)
[2024-12-13] VITALS (8 sets, daily range): BP systolic 102–125; BP diastolic 50–68; PULSE 81–95; RESP 14–20; TEMP 36.8; O2SAT 94–97
[2024-12-13 07:14] LABS: Hematocrit 24.4 % (36.0-46.0)
[2024-12-13 07:34] LABS: Potassium 4.4 mmol/L (3.5-5.1); Sodium 138 mmol/L (136-145)
[2024-12-13 07:35] LABS: Anion Gap 11 (5-15); Calcium 8.5 mg/dL (8.7-10.4); Carbon Dioxide 18 mmol/L (20-31); Chloride 109 mmol/L (98-107)
[2024-12-13 07:40] LABS: BUN/Creatinine Ratio 17.6 (10.0-20.0); Glucose 97 mg/dL (74-106)
[2024-12-13 07:51] LABS: Blood Urea Nitrogen 39 mg/dL (9-23)
[2024-12-13] MEDS: ENOXAPARIN SOD 30 MG/0.3 ML SYRINGE SC SCH (09:43)
--- NOTE | 2024-12-13 16:05 | DVHDS2 ---
Discharge Summary Date of Admission Dec 10, 2024 at 10:09 Date of Discharge: Dec 11, 2024 Labs/Diagnostic Data: Laboratory Results Test 12/13/24 05:11 12/12/24 06:09 12/11/24 05:50 Hemoglobin 8.0 g/dL (12.2-16.2) Hematocrit 24.4 % (36.0-46.0) Sodium Level 138 mmol/L (136-145) Potassium Level 4.4 mmol/L (3.5-5.1) Chloride Level 109 mmol/L (98-107) Carbon Dioxide Level 18 mmol/L (20-31) Anion Gap 11 (5-15) Blood Urea Nitrogen 39 mg/dL (9-23) Creatinine 2.22 mg/dL (0.550-1.02) Glomerular Filtration Rate Calc 25 mL/min (>90) BUN/Creatinine Ratio 17.6 (10.0-20.0) Serum Glucose 97 mg/dL (74-106) Calcium Level 8.5 mg/dL (8.7-10.4) White Blood Count 7.9 10^3/uL (4.4-10.8) Red Blood Count 2.68 10^6/uL (4.0-5.20) Mean Corpuscular Volume 93.2 fL (80.0-100.0) Mean Corpuscular Hemoglobin 31.6 pg (28.0-32.0) Mean Corpuscular Hemoglobin Concent 33.9 g/dL (32.0-36.0) Red Cell Distribution Width 16.8 % (11.8-14.3) Platelet Count 195 10^3/uL (140-450) Mean Platelet Volume 7.9 fL (6.9-10.8) Neutrophils (%) (Auto) 80.8 % (37.0-80.0) Lymphocytes (%) (Auto) 7.9 % (10.0-50.0) Monocytes (%) (Auto) 8.1 % (0.0-12.0) Eosinophils (%) (Auto) 2.9 % (0.0-7.0) Basophils (%) (Auto) 0.3 % (0.0-2.0) Neutrophils # (Auto) 6.4 10 ^3/uL (1.6-8.6) Lymphocytes # (Auto) 0.6 10 ^3/uL (0.4-5.4) Monocytes # (Auto) 0.6 10 ^3/uL (0-1.3) Eosinophils # (Auto) 0.2 10 ^3/uL (0-0.8) Basophils # (Auto) 0 10 ^3/uL (0-0.2) Nucleated Red Blood Cells 0.0 % Total Bilirubin 0.3 mg/dL (0.2-1.0) Aspartate Amino Transferase (AST) 11 U/L (13-40) Alanine Aminotransferase (ALT) < 9 U/L (7-40) Alkaline Phosphatase 70 U/L (46-116) Total Protein 6.2 g/dL (5.7-8.2) Albumin 3.8 g/dL (3.2-4.8) Other Laboratory Tests 12/13/24 05:11 12/12/24 06:09 Brief Hx & Hospital Course: see dictated note Condition at Discharge: Good Final Diagnosis/Problems List knee osteoarthritis Discharge Disposition: Home Discharge Instruct/Medications Diet: Regular Diet comment: May advance diet as tolerated, drink plenty of fluids. Avoid alcohol whiletaking narcotics Activity: See Comment Activity comment: 1.You can bear as much weight as you tolerate on your knee unlessspecifically instructed otherwise. You may use the walking aid which youwere discharged with and switch to a cane whenever you feel comfortabledoing so. You should use an assistive device until you can walkcomfortably without it. Keep in mind that every patient moves at theirown speed of recovery so take your time.2.A physical therapist will visit you at home. 3.Use CPM machine as instructed (6 hours a day) and increase flexion by 5degrees daily.4.High impact activity such as jumping, aerobics, tennis, and skiing arenot permitted during the first 3 months after surgery. These activitiescan contribute to accelerated wear and should be done with caution afterthis time. Discuss this with your surgeon if you have questions.5.Although a bath or whirlpool is NOT permitted during the first 2-3weeks, you may shower as soon as you get home from the hospital providedthere is no wound drainage. Place a dressing or covering over the woundwhen you shower.6.Swimming is not permitted until the wound is healed, which typicallyoccurs approximately 3-4 weeks after surgery. Follow Up/Referral: 1.Driving is not permitted within the first 2 weeks.2.Your first postoperative visit will take place 2 weeks after discharge.Please call the office once you are home from the hospital to arrange thisappointment.3.Antibiotic preventative treatment is required before dental or otherinvasive procedures. Please ask your surgeon about this at your firstpostoperative visit.If you experience chest pain, shortness of breath or severe painful calfswelling, go to the nearest emergency room to be evaluated. Please callour office once your situation is stabilized. Medications: 1.You will be discharged with pain medication, a blood thinner (unless youwere previously on a blood thinner prior to surgery) and stool softener.Please follow the instructions regarding these medications as provided byyour nurse at the hospital upon discharge.2.Blood clots in the leg are a known complication of surgery. It is veryimportant that you take the medication to protect against clots. Dependingon what you are discharged on typically it is Lovenox 40mg daily for 2weeks or Aspirin 81mg twice daily for 4 weeks. After you finish this, youshould then take baby Aspirin (81mg) once daily for 2 weeks.3.You should restart all of your prescription medications once dischargedfrom the hospital/surgery center unless specifically instructed otherwise.4.Herbal supplements may be restarted 2 weeks after surgery.5.If you have been given Coumadin as a blood thinner, please follow upwith your sap pi developer during the first two weeks after surgery to reviewmedications and overall medical well-being.6.Please note that narcotic pain medication may cause constipation. Pleaseremember to take stool softeners (Colace) when using narcotics to helpreduce the change of constipation. You should not use alcohol togetherwith narcotic medication. Discharge Statement: "Patient was advised to return to the ER or call 911 if any headaches, dizziness, shortness of breath, chest pain, abdominal pain, bleeding, fevers, or worsening of medical condition. Patient was counseled about treatment plan, medications, possible side effects, patientverbalized understanding. All questions were answered to the best of my ability. This discharge took greater then 30 minutes in planning, reviewing documentation, counseling the patient, and discussing with other team members." ASSESSMENT ASSESSMENT Assessment knee osteoarthritis Date of Service: Dec 13, 2024 Billing Provider: BELEN JOVEL MD Common Visit Codes: 92356-JMK/OBS DISCH DAY >30min BELEN JOVEL MD Dec 13, 2024 16:05
[2024-12-13 17:19] LABS: Urine Bacteria None Seen /hpf (None Seen)
[2024-12-13 17:40] LABS: Urine Blood Negative /uL (Negative); Urine Clarity Clear (Clear); Urine Color Colorless (Yellow); Urine Protein, UAD Negative (Negative); Urine Specific Gravity 1.005 (1.001-1.035); Urine Squamous Epithelial Cell FEW /hpf (<5); Urine Urobilinogen Normal (Negative)
--- NOTE | 2024-12-13 20:47 | DVHDS ---
DATE OF DISCHARGE: 12/13/2024 HISTORY OF PRESENT ILLNESS: The patient is a 59-year-old lady who was initially admitted for surgery on the left knee for DJD. The patient subsequently, however, was noted to have hyperkalemia with worsening renal failure. HOSPITAL COURSE: The patient was treated with Lokelma. Hemoglobin at time of discharge is 8.0. The patient's creatinine has improved to 2.2 at time of discharge. The patient will now be discharged home to resume her home medications except for lisinopril. She will follow up with her primary as well as Orthopedics in the next 1-2 weeks. FINAL DIAGNOSES: * Hyperkalemia. * Ijedn-[id number] kidney disease, questionable vasomotor nephropathy. * Hypertension. * Gout. * Obesity. * Status post left knee surgery for degenerative joint disease of the knee. Time spent in discharge planning and review of plan with the patient and nursing is 38 minutes. MD KATIUSKA Branham/JANE/RAJIV TID: [id number] RECEIPT: [id number]
== END 2024-12-13 21:00 | disposition home or self-care (01) ==
LOC: SUR 06:29 → OVERFLOW 10:09 → WEST WING 16:23
PROVIDERS: ADMIT Internal Medicine; ATTEND Internal Medicine
DX: M17.12 Unilateral primary osteoarthritis, left knee (principal); I12.9 Hypertensive chronic kidney disease with stage 1 through stage 4 chronic kidney disease, or unspecified chronic kidney disease; N18.30 Chronic kidney disease, stage 3 unspecified; M10.9 Gout, unspecified; E87.5 Hyperkalemia; E66.9 Obesity, unspecified; Z88.3 Allergy status to other anti-infective agents; Z79.899 Other long term (current) drug therapy; Z98.890 Other specified postprocedural states; Z68.42 Body mass index [BMI] 45.0-49.9, adult
CPT/HCPCS: 27447; 36415; 73562; 80048; 80053; 81001; 84132; 85014; 85018; 85025; 86850; 86900; 86901; 96365; 96366; 96372; 96375; 96376; 97110; 97116; 97163; C1776; G0378; J0690; J0692; J1171; J1650; J1885; J2250; J2270; J2371; J2704; J3010; J3370; J7030; J0131; J3490

== ENCOUNTER 2024-12-14 17:31 | Inpatient (IN) | payer BC ==
[~2024-12-14] VITALS: Ht 160 cm; Wt 106.7 kg
--- NOTE | 2024-12-14 18:44 | ED.PDOC ---
Musculoskeletal HPI Comments 59 year old female came to ER due tp left knee pain. Patient underwent Left total knee arthroplasty last December 11 and tolerated procedure well. Patient was just discharged yesterday. About 45 minutes prior to examination, patient accidentally pulled the dressing of the post op site and she felt that the wound vac got dislodged, currently complaining of a burning pain over her left knee. Chief Complaint: Lower Extremity Time Seen by MD: 18:42 Reviewed Notes: Nurses Notes Allergies: Coded Allergies: Sulfamethoxazole w/Trimethoprim (Verified Allergy, Intermediate, Rash, 07/27/24) Home Meds Reported Medications Allopurinol (Allopurinol) 100 Mg Tab, 100 MG PO DAILY for 30 Days, MG 12/07/24 Amlodipine Besylate (Amlodipine Besylate) 10 Mg Tab, 1 TAB PO DAILY, #30 TAB 5 Refills 07/27/24 Lisinopril (Lisinopril) 20 Mg Tab, 1 TAB PO DAILY, #30 TAB 5 Refills 07/27/24 Dapagliflozin Propanediol (Farxiga) 10 Mg Tab, 10 MG PO, TAB 07/27/24 Information Source: Patient Mode of Arrival: Wheelchair Location: Left Extremity Location: Knee Timing: Minutes Mechanism: Spontaneous Circumstances: Spontaneous, Accident Onset of Symptoms: Spontaneous Symptoms: Swelling, Pain Associated signs and symptoms: Knee pain (left) Review of Systems REVIEW OF SYSTEMS: No fever, no chills, or fatigue HEENT: No sore throat, no earache, no congestion, no neck pain. Cardiac: No chest pain. No palpitations. Lungs: No shortness of breath, no cough. GI: No nausea, no vomiting, no diarrhea, no constipation, no abdominal pain : No dysuria, frequency, or urgency. No hematuria. Musculoskeletal: (+) left knee joint pain , (+) left knee joint swelling, no extremity edema. Skin: No rash, no itching. Neuro: No headache, no dizziness, no weakness Vital Signs Vital Signs Date Time Temp Pulse Resp B/P (MAP) Pulse Ox O2 Delivery O2 Flow Rate FiO2 12/14/24 19:30 Room Air* 0 21 12/14/24 19:03 106 17 167/69 (101) 100 12/14/24 18:00 98.3 Physical Exam General: Awake, alert and oriented. No acute distress. Skin: Skin in warm, dry and intact. Appropriate color for ethnicity. Nailbeds pink with no cyanosis. HEENT: The head is normocephalic and atraumatic. Conjunctivae are clear without exudates or hemorrhage. Sclera is non-icteric. EOM are intact. No signs of nystagmus. Eyelids are normal in appearance without swelling or lesions. Oral mucosa is pink and moist Neck: The neck is supple with normal range of motion. No JVD. Cardiac: Heart rate and rhythm are normal. No murmurs, gallops, or rubs are auscultated. Respiratory: No signs of respiratory distress. Lung sounds are clear in all lobes bilaterally without rales, ronchi, or wheezes. Abdominal: Abdomen is soft, non-tender without distention. Bowel sounds are present and normoactive in all four quadrants. Extremities: Upper and lower extremities are atraumatic in appearance without deformity or edema. Neurological: The patient is awake, alert and oriented to person, place, and time with normal speech. Speech is clear. There is no facial asymmetry. Psychiatric: Appropriate mood and affect. Good judgement and insight. No visual or auditory hallucinations. Past Medical History PAST MEDICAL HISTORY: HTN Surgical History (Other): Right and left knee arthroplasty PY[employer] DEVELOPER History: Denies all [employer] DEVELOPER Hx Family History Family History: Reviewed,noncontributory to illness Social History Smoker: Non-Smoker Alcohol: Denies ETOH Use Drugs: Denies Drug Use Lives In: Home Was a procedure done? Was a procedure done?: No Differential Diagnosis EXT Differential Diagnosis: Cellulitis, Deep Vein Thrombosis, Neurovascular injury, Arthritis, Other (Status post left total knee arthroplasty) X-Ray, Labs, Meds, VS Vital Signs Date Time Temp Pulse Resp B/P (MAP) Pulse Ox O2 Delivery O2 Flow Rate FiO2 12/14/24 19:30 Room Air* 0 21 12/14/24 19:03 106 17 167/69 (101) 100 12/14/24 19:03 106 17 100 Room Air* 0 21 12/14/24 18:00 98.3 98 19 155/60 (91) 97 Lab Test 12/14/24 20:55 Range/Units White Blood Count 7.5 4.4-10.8 10^3/uL Red Blood Count 2.66 L 4.0-5.20 10^6/uL Hemoglobin 8.2 L 12.2-16.2 g/dL Hematocrit 24.7 L 36.0-46.0 % Mean Corpuscular Volume 92.9 80.0-100.0 fL Mean Corpuscular Hemoglobin 30.8 28.0-32.0 pg Mean Corpuscular Hemoglobin Concent 33.2 32.0-36.0 g/dL Red Cell Distribution Width 16.9 H 11.8-14.3 % Platelet Count 280 140-450 10^3/uL Mean Platelet Volume 7.3 6.9-10.8 fL Neutrophils (%) (Auto) 77.8 37.0-80.0 % Lymphocytes (%) (Auto) 12.0 10.0-50.0 % Monocytes (%) (Auto) 6.5 0.0-12.0 % Eosinophils (%) (Auto) 3.3 0.0-7.0 % Basophils (%) (Auto) 0.4 0.0-2.0 % Neutrophils # (Auto) 5.8 1.6-8.6 10 ^3/uL Lymphocytes # (Auto) 0.9 0.4-5.4 10 ^3/uL Monocytes # (Auto) 0.5 0-1.3 10 ^3/uL Eosinophils # (Auto) 0.2 0-0.8 10 ^3/uL Basophils # (Auto) 0 0-0.2 10 ^3/uL Nucleated Red Blood Cells 0.1 % Erythrocyte Sedimentation Rate 60 H 0-20 mm/hr Prothrombin Time 10.2 9.3-11.8 sec Prothrombin Time INR 0.96 0.9-1.15 Activated Partial Thromboplast Time 30.8 24.5-34.5 SEC Sodium Level 139 136-145 mmol/L Potassium Level 4.2 3.5-5.1 mmol/L Chloride Level 111 H 98-107 mmol/L Carbon Dioxide Level 21 20-31 mmol/L Anion Gap 7 5-15 Blood Urea Nitrogen 28 #H 9-23 mg/dL Creatinine 1.59 H 0.550-1.02 mg/dL Glomerular Filtration Rate Calc 37 >90 mL/min BUN/Creatinine Ratio 17.6 10.0-20.0 Serum Glucose 99 74-106 mg/dL Hemoglobin A1c 5.2 <5.7 % A1C Calcium Level 9.0 8.7-10.4 mg/dL Magnesium Level 2.0 1.6-2.6 mg/dL Total Bilirubin 0.3 0.2-1.0 mg/dL Direct Bilirubin 0.1 <0.3 mg/dL Aspartate Amino Transferase (AST) 11 L 13-40 U/L Alanine Aminotransferase (ALT) < 9 7-40 U/L Alkaline Phosphatase 70 46-116 U/L C-Reactive Protein High Sensitivity 11.01 H <1.0 mg/dL B-Type Natriuretic Peptide 185.98 0-100 pg/mL Total Protein 5.7 5.7-8.2 g/dL Albumin 3.6 3.2-4.8 g/dL Thyroid Stimulating Hormone (TSH) 3.03 0.55-4.78 uIU/mL Current Medications Medications (Trade) Dose Ordered Sig/Mike Route Start Time Stop Time Status Last Admin Cefazolin Sodium 50 ml @ 100 mls/hr ONCE ONCE IV 12/14/24 21:00 12/14/24 21:29 DC 12/14/24 21:40 Left lower extremity venous duplex Clinical History: LLE swelling post op Comparison: None Technique: Duplex Doppler evaluation of the deep venous system of the left lower extremity from the common femoral vein to the popliteal vein including color Doppler and spectral/pulsed waveform analysis was performed. Findings: there is good flow in the left common femoral vein in left greater saphenous vein. There is good compression and flow in the superior left superficial femoral vein. There is good flow in the deep profunda vein. There is good flow and waveform in the mid left superficial femoral vein. There is edema involving the soft tissues adjacent to the knee. There is good compression and flow in the left popliteal vein. There is good flow in the left posterior tibialis vein. In the significant edema in the [id number] left lower extremity. IMPRESSION: 1. No evidence for deep vein thrombosis . There is significant subcutaneous edema Time of 1ST Reevaluation: 18:38 Reevaluation 1ST: Unchanged Patient Education/Counseling: Diagnosis, Treatment Family Education/Counseling: Diagnosis, Treatment Departure 1 Departure Time of Disposition: 19:51 Impression: Primary Impression: Assistance needed for dressing Additional Impression: Postoperative infection Disposition: HOME / SELF CARE / HOMELESS Condition: Stable Additional Instructions: ED DISCHARGE INSTRUCTIONS Instructions: Please read all instructions provided in this packet carefully. Although you have been discharged from the Emergency Department, this does not mean that you have a "clean bill of health". No definitive diagnosis for your symptoms has been made today. It is possible that you are in the process of developing a serious illness. This is why you must return to the ED without fail if any new or worsening symptoms (especially if your symptoms include swelling, chest pain, trouble breathing, abdominal pain, fever, headache, confusion, trouble seeing, or trouble walking) It is also very important that you see a primary care doctor within the next 3-5 days to follow up. If you are unable to get an appointment, return to the ED for re-evaluation. Follow up with Dr. Dao on Tuesday for further instructions on wound dressing. Comments 59-year-old female who presents to the emergency department for accidental dressing removal a wound VAC. Status post Left total knee arthroplasty with Dr. Henry on 12/11/24. Wound care nurse replaced dressing, noted wound VAC to be dry. Patient reports increased redness and swelling of the left lower extremity and mild cellulitis of the left lower extremity noted. Patient does not feel comfortable going home, next follow up appointment is 12/26/2024. Attempted to reach Dr. Henry who is not available at this time. Antibiotics initiated, ultrasound to rule out DVT pending. Patient admitted for further treatment, evaluation and monitoring. Critical Care Note Critical Care Time?: No Stability Stability form required: No Heart Score Heart Score: Heart Score Response (Comments) Value History N/A 0 EKG N/A 0 Age N/A 0 Risk Factors N/A 0 Troponin N/A 0 Total 0 I personally scribed for MARIAM SMALLWOOD MD ([email or web address]) on 12/14/24 at 18:44. Electronically submitted by Doni Oliva ([employer]). I personally scribed for MARIAM SMALLWOOD MD ([email or web address]) on 12/14/24 at 22:35. Electronically submitted by Doni Oliva ([employer]). MARIAM SMALLWOOD MD Dec 14, 2024 18:44
[2024-12-14 19:03] VITALS: PULSE 106; RESP 17; O2SAT 100
[2024-12-14] MEDS: HYDROcodone-ACET 7.5/325MG TAB PO ONE (19:12)
[2024-12-14] MEDS: OXYCODONE W/ ACETAMINOPHEN 5/325MG TABLET PO ONE (20:11)
[2024-12-14 21:10] LABS: Basophils # (auto) 0 10 ^3/uL (0-0.2); Basophils % (auto) 0.4 % (0.0-2.0); Eosinophils # (auto) 0.2 10 ^3/uL (0-0.8); Eosinophils % (auto) 3.3 % (0.0-7.0); Hematocrit 24.7 % (36.0-46.0); Hemoglobin 8.2 g/dL (12.2-16.2); Lymphocytes # (auto) 0.9 10 ^3/uL (0.4-5.4); Mean Corpuscular Hemoglobin 30.8 pg (28.0-32.0); Mean Corpuscular Hgb Conc. 33.2 g/dL (32.0-36.0); Mean Corpuscular Volume 92.9 fL (80.0-100.0); Monocytes # (auto) 0.5 10 ^3/uL (0-1.3); Monocytes % (auto) 6.5 % (0.0-12.0); Neutrophils # (auto) 5.8 10 ^3/uL (1.6-8.6); Neutrophils % (auto) 77.8 % (37.0-80.0); Nucleated Red Blood Cells % 0.1 %; Platelet Count (auto) 280 10^3/uL (140-450); Red Blood Cells 2.66 10^6/uL (4.0-5.20); Red Cell Distribution Width 16.9 % (11.8-14.3); White Blood Cell 7.5 10^3/uL (4.4-10.8)
[2024-12-14 21:22] LABS: Albumin 3.8 g/dL (3.2-4.8); Alkaline Phosphatase 65 U/L (46-116); Anion Gap 7 (5-15); BUN/Creatinine Ratio 17.6 (10.0-20.0); Bilirubin, Total 0.4 mg/dL (0.2-1.0); Carbon Dioxide 21 mmol/L (20-31); Glucose 99 mg/dL (74-106); Potassium 4.2 mmol/L (3.5-5.1); Sodium 139 mmol/L (136-145); Total Protein 6.1 g/dL (5.7-8.2)
[2024-12-14 21:23] LABS: Alanine Aminotransferase < 9 U/L (7-40); Aspartate Aminotransferase 12 U/L (13-40); Blood Urea Nitrogen 28 mg/dL (9-23); Chloride 111 mmol/L (98-107)
[2024-12-14] MEDS: ceFAZolin 1GM/50ML 50 ML IV ONE (21:40)
[2024-12-14] MEDS ORDERED: MORPHINE SULFATE INJ 2 MG/ml SYRG IV PRN ×2 (21:45)
[2024-12-14] MEDS ORDERED: ACETAMINOPHEN 325 MG TAB PO PRN (21:45)
[2024-12-14] MEDS ORDERED: NITROGLYCERIN 0.4 MG SL TAB SL PRN (21:45)
--- NOTE | 2024-12-14 22:10 | DVH ---
Left lower extremity venous duplex Clinical History: LLE swelling post op Comparison: None Technique: Duplex Doppler evaluation of the deep venous system of the left lower extremity from the common femor al vein to the popliteal vein including color Doppler and spectral/pulsed waveform analysis was perfo rmed. Findings: there is good flow in the left common femoral vein in left greater saphenous vein. There is good comp ression and flow in the superior left superficial femoral vein. There is good flow in the deep profunda vein. There is good flow and waveform in the mid left superficial femoral vein. There is edema involving the soft tissues adjacent to the knee. There is good compression and flow in the left popliteal vein. There is good flow in the left posterior tibialis vein. In the significant edema in the [id number] left lower extremity. IMPRESSION: 1. No evidence for deep vein thrombosis . There is significant subcutaneous edema
[2024-12-14 22:19] LABS: INR 0.96 (0.9-1.15); Partial Thromboplastin Time 30.8 SEC (24.5-34.5); Prothrombin Time 10.2 sec (9.3-11.8)
[2024-12-14 22:22] LABS: Albumin 3.6 g/dL (3.2-4.8); Alkaline Phosphatase 70 U/L (46-116); Bilirubin, Direct 0.1 mg/dL (<0.3); Bilirubin, Total 0.3 mg/dL (0.2-1.0)
[2024-12-14 22:24] LABS: Alanine Aminotransferase < 9 U/L (7-40); Aspartate Aminotransferase 11 U/L (13-40); Total Protein 5.7 g/dL (5.7-8.2)
[2024-12-14 22:32] LABS: CRP High Sensitivity 11.01 mg/dL (<1.0)
[2024-12-14 22:33] LABS: Erythrocyte Sedimentation Rate 60 mm/hr (0-20)
[2024-12-14] MEDS: SODIUM CHLOR 0.9% PF (SALINE LOCK) 10ML VIAL/SYR IV SCH (22:35)
[2024-12-14] MEDS: hydrALAZINE HCL 20 MG/ML VL IV ONE (23:30)
[2024-12-14] MEDS ORDERED: hydrALAZINE HCL 20 MG/ML VL IV PRN (23:30)
--- NOTE | 2024-12-14 23:38 | DVHHPRES ---
History of Present Illness Resident Creating Document: TAMY HOWELL RESIDENT History of Present Illness Phuong Johnson is a 59-year-old female with a PMH of HTN, CKD stage III, gout presented to the ED with the chief complaints of redness in left lower extremity for 1 day. Patient was reported she recently underwent Left total knee arthroplasty using computer navigation and in this facility, discharged yesterday and then today patient was extended today ccidentally pulled the dressing of the post op site and she felt that the wound vac got dislodged, currently complaining of a burning pain over her left knee and observed redness and warmth in left medial thigh, patient was more concerned and visited the ED. on my assessment patient denies fall, trauma, fever, nausea, vomiting, and associated symptoms PMH: HTN, CKD stage III, gout PSH: Left total knee arthroplasty Social history: Denies smoking or alcohol. Lives at home with family. Family history: Negative. Medications: allopurinol, Norvasc, Farxiga and lisinopril. Allergies: Bactrim Review of Systems Constitutional: No: Fever, Chills, Sweats, Weakness, Malaise, Other Eyes: No: Pain, Vision change, Conjunctivae inflammation, Eyelid inflammation, Other, Redness ENT: No: Ear pain, Ear discharge, Nose pain, Nose discharge, Nose congestion, Mouth pain, Mouth swelling, Throat pain, Throat swelling, Other Respiratory: No: Cough, Dry, Shortness of breath, SOB with excertion, Wheezing, Hemoptysis, Pleuritic Pain, Sputum, Wheezing, Other Cardiovascular: No: Chest Pain, Palpitations, Orthopnea, Paroxysmal Noc. Dyspnea, Edema, Lt Headedness, Other Gastrointestinal: No: Nausea, Vomiting, Abdominal Pain, Diarrhea, Constipation, Melena, Hematochezia, Other Musculoskeletal: other (Burning sensation left knee, redness) Skin: Other (Redness left thigh) Neurological: No: Weakness, Numbness, Incoordination, Change in speech, C onfusion, Seizures, Other Allergies: Coded Allergies: Sulfamethoxazole w/Trimethoprim (Verified Allergy, Intermediate, Rash, 07/27/24) Medications Current Medications Medications Dose Ordered Sig/Mike Route Start Time Stop Time Status Last Admin Dose Admin Sodium Chloride 10 ml Q8HR IV 12/14/24 22:00 12/14/24 22:35 10 ML Sodium Chloride 1,000 ml @ 60 mls/hr [id number] IV 12/14/24 21:45 Enoxaparin Sodium 40 mg DAILY SC 12/15/24 10:00 Acetaminophen 650 mg Q6HP PRN PO 12/14/24 21:45 Morphine Sulfate 2 mg Q4HPRN PRN IV 12/14/24 21:45 Nitroglycerin 0.4 mg Q5MINP PRN SL 12/14/24 21:45 Morphine Sulfate 2 mg Q30M PRN IV 12/14/24 21:45 Oxycodone/ Acetaminophen 1 tab Q4HP PRN PO 12/14/24 23:30 UNV Exam Vital Signs Vital Signs Date Time Temp Pulse Resp B/P (MAP) Pulse Ox O2 Delivery O2 Flow Rate FiO2 12/14/24 19:30 Room Air* 0 21 12/14/24 19:03 106 17 167/69 (101) 100 12/14/24 18:00 98.3 Exam Pt is lying on bed General Appearance: Patient was anxious, Alert, Oriented X3, Cooperative, mild distress HEENT: Atraumatic, Mucous membranes moist/pink Respiratory: Clear to auscultation, Normal air movement, No added sounds Cardiovascular: Regular rate, Normal S1, Normal S2, No murmurs Abdominal: Active bowel sounds, Soft, no distention, no tenderness Extremities: Wound VAC on left knee intact, redness, warmth on medial aspect of left thigh. Skin: redness admitted aspect of left thigh Neuro: Normal speech, sensorimotor deficits none Psych/Mental Status: Mental status NL, Mood NL Nurse was there as sharperone during examination Labs/Xrays Labs Test 12/14/24 21:55 12/14/24 20:55 Range/Units Lactic Acid Level 0.5 0.4-2.0 mmol/L White Blood Count 7.5 4.4-10.8 10^3/uL Red Blood Count 2.66 L 4.0-5.20 10^6/uL Hemoglobin 8.2 L 12.2-16.2 g/dL Hematocrit 24.7 L 36.0-46.0 % Mean Corpuscular Volume 92.9 80.0-100.0 fL Mean Corpuscular Hemoglobin 30.8 28.0-32.0 pg Mean Corpuscular Hemoglobin Concent 33.2 32.0-36.0 g/dL Red Cell Distribution Width 16.9 H 11.8-14.3 % Platelet Count 280 140-450 10^3/uL Mean Platelet Volume 7.3 6.9-10.8 fL Neutrophils (%) (Auto) 77.8 37.0-80.0 % Lymphocytes (%) (Auto) 12.0 10.0-50.0 % Monocytes (%) (Auto) 6.5 0.0-12.0 % Eosinophils (%) (Auto) 3.3 0.0-7.0 % Basophils (%) (Auto) 0.4 0.0-2.0 % Neutrophils # (Auto) 5.8 1.6-8.6 10 ^3/uL Lymphocytes # (Auto) 0.9 0.4-5.4 10 ^3/uL Monocytes # (Auto) 0.5 0-1.3 10 ^3/uL Eosinophils # (Auto) 0.2 0-0.8 10 ^3/uL Basophils # (Auto) 0 0-0.2 10 ^3/uL Nucleated Red Blood Cells 0.1 % Erythrocyte Sedimentation Rate 60 H 0-20 mm/hr Prothrombin Time 10.2 9.3-11.8 sec Prothrombin Time INR 0.96 0.9-1.15 Activated Partial Thromboplast Time 30.8 24.5-34.5 SEC Sodium Level 139 136-145 mmol/L Potassium Level 4.2 3.5-5.1 mmol/L Chloride Level 111 H 98-107 mmol/L Carbon Dioxide Level 21 20-31 mmol/L Anion Gap 7 5-15 Blood Urea Nitrogen 28 #H 9-23 mg/dL Creatinine 1.59 H 0.550-1.02 mg/dL Glomerular Filtration Rate Calc 37 >90 mL/min BUN/Creatinine Ratio 17.6 10.0-20.0 Serum Glucose 99 74-106 mg/dL Hemoglobin A1c 5.2 <5.7 % A1C Calcium Level 9.0 8.7-10.4 mg/dL Magnesium Level 2.0 1.6-2.6 mg/dL Total Bilirubin 0.3 0.2-1.0 mg/dL Direct Bilirubin 0.1 <0.3 mg/dL Aspartate Amino Transferase (AST) 11 L 13-40 U/L Alanine Aminotransferase (ALT) < 9 7-40 U/L Alkaline Phosphatase 70 46-116 U/L C-Reactive Protein High Sensitivity 11.01 H <1.0 mg/dL B-Type Natriuretic Peptide 185.98 0-100 pg/mL Total Protein 5.7 5.7-8.2 g/dL Albumin 3.6 3.2-4.8 g/dL Thyroid Stimulating Hormone (TSH) 3.03 0.55-4.78 uIU/mL Assessment/Plan Assessment/Plan # ? Cellulitis left lower extremity # wound check status post left knee surgery # rule out left septic arthritis -ordered blood culture -given one dose of cefazolin -vancomycin and cefepime -ortho consult -elevated ESR and CRP # PAMELA likely VMN on CKD stage 3 -continuously monitored lab -IVF # uncontrolled Hypertension. -continuously monitor -resuming home meds -hydralazine 10 mg p.r.n. # morbid obesity with a BMI 45.3 -nutritional counseling # severe left OA knee, s/pleft knee surgery -The patient will be placed on physical therapy and deep venous thrombosis prophylaxis. # normocytic, normochromic anemia -monitor lab for now Protonix Lovenox Cardiac diet Goals of care discussed with the patient for more than 29 minutes: Full code status Case discussed with Dr. Back, patient and nurse. Plan discussed with: Patient My Orders Orders - TAMY HOWELL RESIDENT Procedure Category Date Status Time Admit ADMIT 12/14/24 Transmitted 21:41 Allergies SHIRA 12/14/24 In Process 21:41 Code Status CODE 12/14/24 Transmitted 21:41 Sodium Chloride Lock PHA 12/14/24 In Process (Saline Lock Ns) 22:00 Sodium Chloride 0.9% PHA 12/14/24 In Process 21:45 Enoxaparin Sodium PHA 12/15/24 In Process (Lovenox) 10:00 Complete Blood Count LAB 12/15/24 Verified 04:00 Comprehensive LAB 12/15/24 Verified Metabolic Panel 04:00 Cardiac DIET 12/15/24 Transmitted Diet-2gna,Lofat,Lochol Breakfast Condition: Stable SHIRA 12/14/24 In Process 21:41 Acetaminophen Tablet PHA 12/14/24 In Process (Tylenol Tablet) 21:45 Morphine Sulfate PHA 12/14/24 In Process Injection 21:45 Nitroglycerin PHA 12/14/24 In Process Sublingual (Ntrostat 21:45 Morphine Sulfate PHA 12/14/24 In Process Injection 21:45 Oxygen By Nasal RT 12/14/24 Transmitted Cannula 21:41 Stat Ekg For Chest SHIRA 12/14/24 In Process Pain 21:41 Notify Of Changes SHIRA 12/14/24 In Process From Base 21:41 Covid19 Antigen Dorina LAB 12/14/24 Logged Rapid Influenza A&B LAB 12/14/24 Logged 21:41 Urinalysis LAB 12/14/24 Logged 21:[address] 12/14/24 Taken W/O Con 21:41 Blood Culture PILAR 12/14/24 In Process 21:41 * Wound Consult CONS 12/14/24 Transmitted Hydromorphone PHA 12/14/24 Logged Injection (Dilaudid 23:30 Oxycodone W/ Acet PHA 12/14/24 Logged 5/325mg Tab (Percocet 23:30 TAMY HOWELL RESIDENT Dec 14, 2024 23:38
[2024-12-14] MEDS ORDERED: VANCOMYCIN PER PHARMACY 0 MG IV SCH (23:45)
[2024-12-15] VITALS (10 sets, daily range): BP systolic 131–162; BP diastolic 55–78; PULSE 78–94; RESP 18–20; TEMP 98–98.4; O2SAT 95–99
--- NOTE | 2024-12-15 00:16 | DVH ---
Procedure: CT LEFT LOWER EXTREMITY W/O CON Reason for study/Clinical History: Cellulitis, possible abscess left lower extremity Comparison Study: None available at time of dictation. Radiation Dose Information: CT Dose: CTDI volume is 19.27 mGy. Dose-length product is 1913.79 mGy*cm TECHNIQUE: This study was performed on the slice CT scanner at [facility] imaging facility. 3D an giographic acquisitions of lower extremity was obtained during the intravenous administration of 14 0 cc of omnipaque without immediate adverse effect. Post processing, including maximum intensity pro jection, was performed images were reviewed on a PACS workstation. 3D postprocessing images were performed on a dedicated workstation and images were reviewed and inter preted for reporting. FINDINGS: Is no evidence for fracture involving the left hip or the left femur. Patient has a apparently penetr ating wound adjacent to and involving the anterior quadriceps muscle group patient has had a total le ft knee replacement significant fluid is seen in the suprapatellar bursa is also subcutaneous fluid. Wound may be secondary to total left knee replacement air tracking along the fascia of the extensor m uscles of the anterior femur. No definite abscess is seen. There is a significant subcutaneous edema involving the entire left lower extremity. IMPRESSION: 1. Large amount of subcutaneous edema there is also air tracking along the anterior quadriceps muscle group fascial plane. Patient had recent surgery probably a knee replacement. There is fluid in the s uprapatellar bursa see a definite abscess.
[2024-12-15] MEDS: HYDROmorphone HCL 2 MG/ML VL/or syr IV ONE (00:18)
[2024-12-15] MEDS: VANCOMYCIN 1GM/250ML KIT 250 ML IV SCH (01:00)
[2024-12-15] MEDS: SODIUM CHLORIDE 0.9% 1,000 ML IV SCH (01:31)
[2024-12-15] MEDS: OXYCODONE W/ ACETAMINOPHEN 5/325MG TABLET PO PRN (03:05)
[2024-12-15 03:13] LABS: COVID19 ANTIGEN SOFIA FIA NEGATIVE (NEGATIVE)
[2024-12-15 03:14] LABS: Rapid Influenza A Negative (Negative); Rapid Influenza B Negative (Negative)
[2024-12-15] MEDS ORDERED: ASPI1TAB20 PO (03:23)
[2024-12-15] MEDS ORDERED: DOCU-94 PO (03:25)
[2024-12-15] MEDS ORDERED: PERCOT PO (03:25)
[2024-12-15 06:59] LABS: Basophils # (auto) 0 10 ^3/uL (0-0.2); Eosinophils # (auto) 0.3 10 ^3/uL (0-0.8); Eosinophils % (auto) 4.2 % (0.0-7.0); Hemoglobin 8.2 g/dL (12.2-16.2); Monocytes # (auto) 0.5 10 ^3/uL (0-1.3); Neutrophils # (auto) 4.5 10 ^3/uL (1.6-8.6); White Blood Cell 6.1 10^3/uL (4.4-10.8)
[2024-12-15 07:02] LABS: Basophils % (auto) 0.4 % (0.0-2.0); Hematocrit 24.7 % (36.0-46.0); Lymphocytes # (auto) 0.9 10 ^3/uL (0.4-5.4); Lymphocytes % (auto) 14.7 % (10.0-50.0); Mean Corpuscular Hemoglobin 30.9 pg (28.0-32.0); Mean Corpuscular Hgb Conc. 33.3 g/dL (32.0-36.0); Mean Corpuscular Volume 92.8 fL (80.0-100.0); Monocytes % (auto) 7.8 % (0.0-12.0); Neutrophils % (auto) 72.9 % (37.0-80.0); Platelet Count (auto) 278 10^3/uL (140-450); Red Blood Cells 2.66 10^6/uL (4.0-5.20); Red Cell Distribution Width 16.8 % (11.8-14.3)
[2024-12-15 07:07] LABS: Albumin 3.6 g/dL (3.2-4.8); Alkaline Phosphatase 64 U/L (46-116); Anion Gap 7 (5-15); BUN/Creatinine Ratio 16.3 (10.0-20.0); Calcium 8.9 mg/dL (8.7-10.4); Carbon Dioxide 22 mmol/L (20-31); Glucose 75 mg/dL (74-106); Potassium 4.3 mmol/L (3.5-5.1); Sodium 141 mmol/L (136-145); Total Protein 5.8 g/dL (5.7-8.2)
[2024-12-15 07:08] LABS: Bilirubin, Total 0.4 mg/dL (0.2-1.0)
[2024-12-15 07:14] LABS: Blood Urea Nitrogen 26 mg/dL (9-23); Chloride 112 mmol/L (98-107)
[2024-12-15 07:15] LABS: Alanine Aminotransferase < 9 U/L (7-40); Aspartate Aminotransferase 9 U/L (13-40)
--- NOTE | 2024-12-15 09:18 | DVHPN2 ---
Progress Note - Dictate Date Seen: Dec 15, 2024 Medical Necessity Reason Pt with a Central, PICC or Fol: No Subjective Postop pain s/p left total knee arthroplasty. Patient states that her dressing came loose at home and it was causing it to alarm and she did not know how to fix it so she came to the emergency room and eventually the dressing was corrected and the suctioned reestablished on the Prevena closed wound suction device. Patient was admitted though the indication is not clear. Patient has had no fevers or chills at home. Her left total knee arthroplasty was earlier this week and was just discharged home a day or two ago. vital signs Vital Sign Date Time Temp Pulse Resp B/P (MAP) Pulse Ox O2 Delivery O2 Flow Rate FiO2 12/15/24 05:00 98.0 91 19 147/68 (94) 97 98.0 12/15/24 03:26 Room Air* 0 21 Total Intake and Output 12/14/24 12/14/24 12/15/24 15:00 23:00 07:00 Intake Total 50 ml 200 ml Balance 50 ml 200 ml medications Current Medications Medications Dose Ordered Sig/Mike Route Start Time Stop Time Status Last Admin Dose Admin Sodium Chloride 10 ml Q8HR IV 12/14/24 22:00 12/15/24 05:45 10 ML Sodium Chloride 1,000 ml @ 60 mls/hr [id number] IV 12/14/24 21:45 12/15/24 01:31 60 MLS/HR Enoxaparin Sodium 40 mg DAILY SC 12/15/24 10:00 Acetaminophen 650 mg Q6HP PRN PO 12/14/24 21:45 Oxycodone/ Acetaminophen 1 tab Q4HP PRN PO 12/14/24 23:30 12/15/24 03:07 1 TAB Allopurinol 100 mg DAILY PO 12/15/24 10:00 Amlodipine Besylate 10 mg DAILY PO 12/15/24 10:00 Hydralazine HCl 10 mg Q6HP PRN IV 12/14/24 23:30 Vancomycin HCl 0 ml @ 0 mls/hr UD IV 12/14/24 23:45 Cefepime HCl 50 ml @ 12.5 mls/hr Q12HR IV 12/15/24 10:00 Vancomycin HCl 250 ml @ 200 mls/hr Q12H IV 12/15/24 14:00 objective lAlert and oriented x4 Well-developed obese female in no acute distress Examination of the left knee reveals a Prevena closed wound suction device that appears to be stable with suctioned intact. There was no significant erythema. She does have pain with active and passive range of motion which is actually normal for postop knee replacement. Calf was nontender and there was no significant ankle edema. Left lower extremity distal neurovascularly intact. Review of labs do reveal elevated sed rate and C-reactive protein however these markers have a little diagnostic value in the early postoperative period. White count was normal. laboratory and microbiology Laboratory Tests 12/15/24 05:49 Test 12/15/24 05:49 Range/Units Serum Glucose 75 74-106 mg/dL Assessment/Plan S/p left total knee arthroplasty Plan: Physical therapy weight-bearing as instructed by Dr. Henry with walker Patient may be discharged home when cleared by Physical therapy Keep dressing intact. Follow up with Dr. Henry as scheduled Plan discussed with: Patient YONNY MIX MD Dec 15, 2024 09:18
[2024-12-15] MEDS: CEFEPIME 1GM/ 50ML 50 ML IV SCH (09:53)
[2024-12-15] MEDS: amLODIPine BESYLATE 5 MG TAB PO SCH (09:53)
[2024-12-15] MEDS: ALLOPURINOL 100 MG TAB PO SCH (09:53)
[2024-12-15] MEDS: ENOXAPARIN SOD 40 MG/0.4 ML SYRINGE SC SCH (09:54)
[2024-12-15] MEDS ORDERED: VANCOMYCIN 1GM/250ML KIT 250 ML IV SCH (14:00)
--- NOTE | 2024-12-15 15:26 | DVHPNRES ---
Progress Note Date Seen: Dec 15, 2024 Resident Creating Document: MARIE SERVIN RESIDENT Medical Necessity Reason Pt with a Central, PICC or Fol: No Subjective Review of Systems Patient is a 59-year-old female with past medical history of hypertension, stage III CKD, gout who came in after dislodging her wound VAC. According to the patient, she was discharged from the [facility] yesterday on 12/14/2024 after undergoing left knee replacement surgery, she was napping d uring the day when her wound VAC got stuck on her bathroom, pulled out of its location, puffed up and resulted in a burning pain like sensation. Left lower extremity CT scan showed large subcutaneous edema, air tracking along quadriceps. Fluid in suprapatellar bursa. Past surgical history: Left knee replacement, , right knee replacement Past Hospitalization: Discharged from the [facility] 1 week ago after undergoing left knee replacement Social & Personal history: Patient lives with her . Denies using tobacco, alcohol, drugs Patient seen and examined at bedside. Patient is alert and oriented to time, place person and responding to all questions. General: Chills Eyes: No Pain, No Vision change, No Conjunctivae inflammation, No Eyelid inflammation, No Other, No Redness ENT: No Ear pain, No Ear discharge, No Nose pain, No Nose discharge, No Nose congestion, No Mouth pain, No Mouth swelling, No Throat pain, No Throat swelling, No Other Cardiovascular: No Chest Pain, No Palpitations, No Orthopnea, No Paroxysmal No Dyspnea, No Edema, No Lt Headedness, No Other Respiratory: No Cough, No Dry, No Shortness of breath, No SOB with exertion, No Wheezing, No Hemoptysis, No Pleuritic Pain, No Sputum, No Other Gastrointestinal: No Nausea, No Vomiting, No Abdominal Pain, No Diarrhea, No Constipation, No Melena, No Hematochezia, No Other Genitourinary: No Dysuria, No Frequency, No Incontinence, No Hematuria, No Retention, No Other Musculoskeletal: No other, No neck pain, No shoulder pain, No arm pain, No back pain, No hand pain, No leg pain, No foot pain Skin: No Rash, No Lesions, No Jaundice, No Bruising, No Other Objective vital signs Vital Sign Date Time Temp Pulse Resp B/P (MAP) Pulse Ox O2 Delivery O2 Flow Rate FiO2 12/15/24 13:00 98.0 78 20 131/57 (81) 96 98.0 12/15/24 08:10 Room Air* 0 21 Total Intake and Output 12/14/24 12/14/24 12/15/24 15:00 23:00 07:00 Intake Total 50 ml 200 ml Balance 50 ml 200 ml medications Current Medications Medications Dose Ordered Sig/Mike Route Start Time Stop Time Status Last Admin Dose Admin Sodium Chloride 10 ml Q8HR IV 12/14/24 22:00 12/15/24 15:17 10 ML Sodium Chloride 1,000 ml @ 60 mls/hr [id number] IV 12/14/24 21:45 12/15/24 01:31 60 MLS/HR Enoxaparin Sodium 40 mg DAILY SC 12/15/24 10:00 12/15/24 09:54 40 MG Acetaminophen 650 mg Q6HP PRN PO 12/14/24 21:45 Oxycodone/ Acetaminophen 1 tab Q4HP PRN PO 12/14/24 23:30 12/15/24 15:17 1 TAB Allopurinol 100 mg DAILY PO 12/15/24 10:00 12/15/24 09:53 100 MG Amlodipine Besylate 10 mg DAILY PO 12/15/24 10:00 12/15/24 09:53 10 MG Hydralazine HCl 10 mg Q6HP PRN IV 12/14/24 23:30 Cefepime HCl 50 ml @ 12.5 mls/hr Q12HR IV 12/15/24 10:00 12/15/24 09:53 12.5 MLS/HR Linezolid 300 ml @ 150 mls/hr Q12HR IV 12/15/24 22:00 Examination General Appearance: Cooperative. Well developed. Well nourished. NAD Head Exam: Normal inspection Neck Exam: Normal inspection. Non-tender. Normal alignment Pulmonary/Respiratory: Chest non-tender. Clear bilateral breath sounds, no crackles, no wheezing. Cardiovascular/Chest: Regular rate and rhythm. No murmurs. No JVD. Peripheral Pulses: 2+ Radial (R). 2+ Radial (L). 2+ Pedal (R). 2+ Pedal (L) Abdominal Exam: Normal bowel sounds. Soft. normal abdomen, no visible veins, Nontender. No hepatospenomegaly. No masses Ankle Exam: Negative ankle edema Lower extremities: Trace left lower extremity edema. Mild tenderness to palpation around the left knee. Erythema noted along the medial aspect of the thigh extending from the knee towards the groin Neuro/Mental Status: A&O x4. Coherent. Thoughts/Psych: Normal thought pattern. Appropriate mood and affect. Good judgement and insight Skin Exam: Normal inspection. Normal color. Warm. Dry laboratory and microbiology Laboratory Tests 12/15/24 05:49 Test 12/15/24 05:49 Range/Units Serum Glucose 75 74-106 mg/dL Labs and/or images reviewed: Labs reviewed by me, Image(s) reviewed by me Problem List/Assessment/Plan Problem List/Assessment/Plan Questionable cellulitis of the left lower extremity Dislodged wound VAC left knee - lower extremity Doppler, no evidence for DVT. There is significant subcutaneous edema - lower extremity CT: Large amount of subcutaneous edema there is also air tracking along the anterior quadriceps muscle group facial pain. Patient had recent surgery probably a knee replacement. There is a fluid in the suprapatellar bursa - IV NS at 60 cc/hour - IV linezolid b.i.d. (discontinued vancomycin as patient's CKD stage 3). - IV cefepime PAMELA likely hemodynamically mediated/VMN on CKD stage 3 - monitor Hypertension - amlodipine 10 mg Morbid obesity, BMI 45.3 - counseled Osteoarthritis Gout - resumed home medication allopurinol - [place] 5 as needed for moderate pain - acetaminophen as needed for mild pain DVT prophylaxis: Levonox 40mg Goals of care: Full code, discussed for >16 minutes on 12/15/2024 Plan discussed with patient Plan discussed with Dr. Berrios Plan discussed with: Patient, Other (RN) My Orders My Orders Orders - MARIE SERVIN RESIDENT Procedure Category Date Status Time Pt Request For Service PT 12/15/24 Logged 10:37 Linezolid 600mg/300ml PHA 12/15/24 In Process (Zyvox) 22:00 Date of Service: Dec 15, 2024 Billing Provider: DAVID BERRIOS MD Common Visit Codes: [id number] INP/OBS CARE(HIGH) MARIE SERVIN Dec 15, 2024 15:26 DAVID BERRIOS MD Dec 15, 2024 20:12
[2024-12-15] MEDS: LINEZOLID 600MG/300ML 300 ML IV SCH (21:12)
[2024-12-15] MEDS: VALSARTAN 80 MG TAB PO ONE (21:23)
[2024-12-16] VITALS (7 sets, daily range): BP systolic 136–149; BP diastolic 52–67; PULSE 66–90; RESP 18–19; TEMP 36.7; O2SAT 95–98
[2024-12-16 06:02] LABS: Basophils # (auto) 0 10 ^3/uL (0-0.2); Eosinophils # (auto) 0.3 10 ^3/uL (0-0.8); Monocytes # (auto) 0.5 10 ^3/uL (0-1.3)
[2024-12-16 06:08] LABS: Basophils % (auto) 0.8 % (0.0-2.0); Eosinophils % (auto) 6.1 % (0.0-7.0); Hematocrit 23.5 % (36.0-46.0); Hemoglobin 8.1 g/dL (12.2-16.2); Lymphocytes % (auto) 17.1 % (10.0-50.0); Mean Corpuscular Hemoglobin 31.5 pg (28.0-32.0); Mean Corpuscular Hgb Conc. 34.5 g/dL (32.0-36.0); Mean Corpuscular Volume 91.4 fL (80.0-100.0); Monocytes % (auto) 8.9 % (0.0-12.0); Neutrophils # (auto) 3.8 10 ^3/uL (1.6-8.6); Neutrophils % (auto) 67.1 % (37.0-80.0); Platelet Count (auto) 281 10^3/uL (140-450); Red Blood Cells 2.57 10^6/uL (4.0-5.20); Red Cell Distribution Width 16.6 % (11.8-14.3); White Blood Cell 5.7 10^3/uL (4.4-10.8)
[2024-12-16 06:22] LABS: Anion Gap 9 (5-15); Carbon Dioxide 22 mmol/L (20-31); Potassium 4.3 mmol/L (3.5-5.1); Sodium 140 mmol/L (136-145)
[2024-12-16 06:24] LABS: Calcium 9.2 mg/dL (8.7-10.4)
[2024-12-16 06:28] LABS: BUN/Creatinine Ratio 13.7 (10.0-20.0); Blood Urea Nitrogen 20 mg/dL (9-23); Glucose 91 mg/dL (74-106)
[2024-12-16 06:36] LABS: Chloride 109 mmol/L (98-107)
[2024-12-16 06:40] LABS: Erythrocyte Sedimentation Rate 54 mm/hr (0-20)
[2024-12-16] MEDS: SODIUM CHLORIDE 0.9% 1,000 ML IV SCH (08:15)
[2024-12-16] MEDS: VALSARTAN 80 MG TAB PO SCH (10:17)
[2024-12-16 10:35] LABS: Urine Bacteria None Seen /hpf (None Seen)
[2024-12-16 11:01] LABS: Opiate Scree,Urine Neg (NEGATIVE)
[2024-12-16 11:02] LABS: Amphetamine Screen, Urine Neg (NEGATIVE); Barbiturate Scree,Urine Neg (NEGATIVE); Benzodiazephine Screen, Urine Neg (NEGATIVE); Cannabinoid Screen, Urine Neg (NEGATIVE); Cocaine Screen, Urine Neg (NEGATIVE); Phencyclidine Screen, Urine Neg (NEGATIVE)
[2024-12-16 11:05] LABS: Urine Blood Negative /uL (Negative); Urine Clarity Clear (Clear); Urine Protein, UAD 1+ (Negative); Urine Specific Gravity 1.011 (1.001-1.035); Urine Squamous Epithelial Cell FEW /hpf (<5); Urine Urobilinogen Normal (Negative); Urine WBC < 1 /HPF (0-5); Urine pH 6.5 (5.0-9.0)
[2024-12-16 11:06] LABS: Urine Color Light-Yellow (Yellow)
[2024-12-16] MEDS ORDERED: VALS1TAB57 PO (13:39)
[2024-12-16] MEDS ORDERED: LINE1TAB6 PO (13:39)
[2024-12-16] MEDS ORDERED: ACET-1882 PO (13:39)
[2024-12-16] MEDS ORDERED: CEFD300C2 PO (13:39)
--- NOTE | 2024-12-16 19:51 | DVHDSRES ---
Discharge Summary Date of Admission Resident Creating Document: BEKAH STUBBS RESIDENT Dec 14, 2024 at 21:41 Date of Discharge: Dec 16, 2024 Labs/Diagnostic Data: Laboratory Results Test 12/16/24 09:15 12/16/24 05:37 12/15/24 05:49 12/15/24 01:51 Urine Color Light-yellow (Yellow) Urine Clarity Clear (Clear) Urine pH 6.5 (5.0-9.0) Urine Specific [place] 1.011 (1.001-1.035) Urine Protein 1+ (Negative) Urine Ketones Negative (Negative) Urine Blood Negative /uL (Negative) Urine Nitrite Negative (Negative) Urine Bilirubin Negative (Negative) Urine Urobilinogen Normal mg/dL (Negative) Urine Leukocyte Esterase Negative /uL (Negative) Urine RBC <1 /hpf (0 - 4) Urine Microscopic WBC < 1 /HPF (0-5) Urine Squamous Epithelial Cells Few /hpf (<5) Urine Bacteria None seen /hpf (None Seen) Urine Glucose 3+ mg/dL (Normal) Urine Opiates Screen Neg (NEGATIVE) Urine Fentanyl Screen Neg (NEGATIVE) Urine Barbiturates Screen Neg (NEGATIVE) Urine Phencyclidine Screen Neg (NEGATIVE) Urine Amphetamines Screen Neg (NEGATIVE) Urine Benzodiazepines Screen Neg (NEGATIVE) Urine Cocaine Screen Neg (NEGATIVE) Urine Cannabinoids Screen Neg (NEGATIVE) White Blood Count 5.7 10^3/uL (4.4-10.8) Red Blood Count 2.57 10^6/uL (4.0-5.20) Hemoglobin 8.1 g/dL (12.2-16.2) Hematocrit 23.5 % (36.0-46.0) Mean Corpuscular Volume 91.4 fL (80.0-100.0) Mean Corpuscular Hemoglobin 31.5 pg (28.0-32.0) Mean Corpuscular Hemoglobin Concent 34.5 g/dL (32.0-36.0) Red Cell Distribution Width 16.6 % (11.8-14.3) Platelet Count 281 10^3/uL (140-450) Mean Platelet Volume 7.1 fL (6.9-10.8) Neutrophils (%) (Auto) 67.1 % (37.0-80.0) Lymphocytes (%) (Auto) 17.1 % (10.0-50.0) Monocytes (%) (Auto) 8.9 % (0.0-12.0) Eosinophils (%) (Auto) 6.1 % (0.0-7.0) Basophils (%) (Auto) 0.8 % (0.0-2.0) Neutrophils # (Auto) 3.8 10 ^3/uL (1.6-8.6) Lymphocytes # (Auto) 1.0 10 ^3/uL (0.4-5.4) Monocytes # (Auto) 0.5 10 ^3/uL (0-1.3) Eosinophils # (Auto) 0.3 10 ^3/uL (0-0.8) Basophils # (Auto) 0 10 ^3/uL (0-0.2) Nucleated Red Blood Cells 0.0 % Erythrocyte Sedimentation Rate 54 mm/hr (0-20) Sodium Level 140 mmol/L (136-145) Potassium Level 4.3 mmol/L (3.5-5.1) Chloride Level 109 mmol/L (98-107) Carbon Dioxide Level 22 mmol/L (20-31) Anion Gap 9 (5-15) Blood Urea Nitrogen 20 mg/dL (9-23) Creatinine 1.46 mg/dL (0.550-1.02) Glomerular Filtration Rate Calc 41 mL/min (>90) BUN/Creatinine Ratio 13.7 (10.0-20.0) Serum Glucose 91 mg/dL (74-106) Calcium Level 9.2 mg/dL (8.7-10.4) C-Reactive Protein High Sensitivity 8.12 mg/dL (<1.0) Total Bilirubin 0.4 mg/dL (0.2-1.0) Aspartate Amino Transferase (AST) 9 U/L (13-40) Alanine Aminotransferase (ALT) < 9 U/L (7-40) Alkaline Phosphatase 64 U/L (46-116) Total Protein 5.8 g/dL (5.7-8.2) Albumin 3.6 g/dL (3.2-4.8) Influenza Type A Antigen Negative (Negative) Influenza Type B Antigen Negative (Negative) SARS-CoV-2 Antigen (Rapid) Negative (NEGATIVE) Test 12/14/24 21:55 12/14/24 20:55 Lactic Acid Level 0.5 mmol/L (0.4-2.0) Prothrombin Time 10.2 sec (9.3-11.8) Prothrombin Time INR 0.96 (0.9-1.15) Activated Partial Thromboplast Time 30.8 SEC (24.5-34.5) Hemoglobin A1c 5.2 % A1C (<5.7) Magnesium Level 2.0 mg/dL (1.6-2.6) Direct Bilirubin 0.1 mg/dL (<0.3) B-Type Natriuretic Peptide 185.98 pg/mL (0-100) Thyroid Stimulating Hormone (TSH) 3.03 uIU/mL (0.55-4.78) Other Laboratory Tests 12/16/24 05:37 Brief Hx & Hospital Course: Phuong Johnson is a 59-year-old female patient who presents to ED with chief complaint of sulfa removal of VAC system on left knee surgical wound. According to the patient, she was discharged from [facility] on 12/14/2024 after undergoing left knee replacement surgery, she was napping during the day when her wound VAC got stuck on her bathroom, pulled out of its location. While in the ED, patient underwent left lower extremity CT scan showed large subcutaneous edema, air tracking along quadriceps. Fluid in suprapatellar bursa. Denies fever, palpitation, syncope, chest pain, dyspnea, nausea, vomiting, diarrhea, dysuria, purulent secretion from surgical wound, altered gait, recent travel, sick contacts and motor or sensory deficits. Past medical history: Hypertension, stage III CKD, gout Past surgical history: Left knee replacement, , right knee replacement Social history: Patient lives with her . Denies current tobacco, alcohol, and other drug abuse Allergies: Sulfamethoxazole-Trimethoprim Home medication: Percocet, docusate, aspirin, amlodipine, valsartan, allopurinol, Tylenol Brief hospital course: Cellulitis of left lower extremity with dislodged wound VAC of left knee associated with PAMELA, responding to empiric IV antibiotic (linezolid and cefepime, discharged with cefdinir and linezolid) and IV fluids. Completed lower extremity Doppler which ruled out DVT, lower extremity CT showed large amount of subcutaneous edema with air tracking along anterior quadriceps muscle and fluid and suprapatellar bursa (could be secondary to recent surgery). Evaluated by contracting specialist who recommended discharge, no intervention seated at the moment. Obtain physical therapy evaluation which cleared patient to go home with home physical therapy that was already ordered. Patient hemodynamically stable, asymptomatic, mobilizing with walker, completed PT evaluation with no indication of SNF, obtained new wound VAC seal, in condition to be discharged home. Was granted under optimal medical therapy, gave advice on healthy lifestyle habits, and follow up as outpatient with PCP, team physician and orthopedic doctor DIAGNOSIS Cellulitis of the left lower extremity Dislodged wound VAC left knee PAMELA likely hemodynamically mediated/VMN on CKD stage 3 Hypertension Morbid obesity, BMI 45.3 Osteoarthritis Gout Goals of care discussed with patient for over 18 minutes: Full code status Discussed plan with Dr. Berrios, patient and nurses. Examination Patient lying in bed, in no acute distress General: Lucid, afebrile, mucosae are moist Cardiovascular: Normal S1 and S2. No murmurs, gallops or rubs Respiratory: Normal ventilation mechanics. Clear lung sounds on auscultation Abdomen: Soft, nontender, no organomegaly, normal bowel sounds MSK/skin: Mobilizes 4 limbs. Skin is dry and warm. Mild tenderness on palpation of left knee, erythema in medial aspect of thigh Neurological: Oriented in 3 spheres. No motor no sensitive deficits. Pupils are isocoric and reactive Operations or Procedures Left lower extremity venous duplex Clinical History: LLE swelling post op Comparison: None Technique: Duplex Doppler evaluation of the deep venous system of the left lower extremity from the common femoral vein to the popliteal vein including color Doppler and spectral/pulsed waveform analysis was performed. Findings: there is good flow in the left common femoral vein in left greater saphenous vein. There is good compression and flow in the superior left superficial femoral vein. There is good flow in the deep profunda vein. There is good flow and waveform in the mid left superficial femoral vein. There is edema involving the soft tissues adjacent to the knee. There is good compression and flow in the left popliteal vein. There is good flow in the left posterior tibialis vein. In the significant edema in the [id number] left lower extremity. IMPRESSION: 1. No evidence for deep vein thrombosis . There is significant subcutaneous edema ATED BY: ROMAIN OLIVARES MD DICTATED DATE/TIME: 12/14/242207 Procedure: CT LEFT LOWER EXTREMITY W/O CON Reason for study/Clinical History: Cellulitis, possible abscess left lower extremity Comparison Study: None available at time of dictation. Radiation Dose Information: CT Dose: CTDI volume is 19.27 mGy. Dose-length product is 1913.79 mGy*cm TECHNIQUE: This study was performed on the slice CT scanner at [facility] imaging facility. 3D angiographic acquisitions of lower extremity was obtained during the intravenous administration of 140 cc of omnipaque without immediate adverse effect. Post processing, including maximum intensity projection, was performed images were reviewed on a PACS workstation. 3D postprocessing images were performed on a dedicated workstation and images were reviewed and interpreted for reporting. FINDINGS: Is no evidence for fracture involving the left hip or the left femur. Patient has a apparently penetrating wound adjacent to and involving the anterior quadriceps muscle group patient has had a total left knee replacement significant fluid is seen in the suprapatellar bursa is also subcutaneous fluid. Wound may be secondary to total left knee replacement air tracking along the fascia of the extensor muscles of the anterior femur. No definite abscess is seen. There is a significant subcutaneous edema involving the entire left lower extremity. IMPRESSION: 1. Large amount of subcutaneous edema there is also air tracking along the anterior quadriceps muscle group fascial plane. Patient had recent surgery probably a knee replacement. There is fluid in the suprapatellar bursa see a definite abscess. ATED BY: ROMAIN OLIVARES MD DICTATED DATE/TIME: 12/15/24 0014 Condition at Discharge: Good Final Diagnosis/Problems List Cellulitis of the left lower extremity Dislodged wound VAC left knee PAMELA likely hemodynamically mediated/VMN on CKD stage 3 Hypertension Morbid obesity, BMI 45.3 Osteoarthritis Gout Discharge Disposition: Home SNF Discharge Will this Physician continue t: No Discharge Instruct/Medications Diet: Regular Activity: No Restrictions, As Tolerated Follow Up/Referral: PCP Orthopedics Medications: Per EMR Discharge Statement: "Patient was advised to return to the ER or call 911 if any headaches, dizziness, shortness of breath, chest pain, abdominal pain, bleeding, fevers, or worsening of medical condition. Patient was counseled about treatment plan, medications, possible side effects, patientverbalized understanding. All questions were answered to the best of my ability. This discharge took greater then 30 minutes in planning, reviewing documentation, counseling the patient, and discussing with other team members." ASSESSMENT ASSESSMENT Assessment Cellulitis Date of Service: Dec 16, 2024 Billing Provider: DAVID BERRIOS MD Common Visit Codes: 68946-QBO/OBS DISCH DAY >30min BEKAH STUBBS RESIDENT Dec 16, 2024 19:51 DAVID BERRIOS MD Dec 16, 2024 22:17
== END 2024-12-16 18:24 | disposition home or self-care (01) | DRG 862 ==
LOC: ER 17:45 → OVERFLOW 21:41 → EAST 12-15 02:13
PROVIDERS: ATTEND Internal Medicine
DX: T81.40XA Infection following a procedure, unspecified, initial encounter (principal); N17.0 Acute kidney failure with tubular necrosis; L03.116 Cellulitis of left lower limb; Z68.42 Body mass index [BMI] 45.0-49.9, adult; M00.9 Pyogenic arthritis, unspecified; Z20.822 Contact with and (suspected) exposure to COVID-19; N18.30 Chronic kidney disease, stage 3 unspecified; E66.01 Morbid (severe) obesity due to excess calories; M10.9 Gout, unspecified; I12.9 Hypertensive chronic kidney disease with stage 1 through stage 4 chronic kidney disease, or unspecified chronic kidney disease; D64.9 Anemia, unspecified; M19.09 Primary osteoarthritis, other specified site; Z96.652 Presence of left artificial knee joint; Z88.1 Allergy status to other antibiotic agents; Z79.899 Other long term (current) drug therapy; Y84.8 Other medical procedures as the cause of abnormal reaction of the patient, or of later complication, without mention of misadventure at the time of the procedure; Y92.89 Other specified places as the place of occurrence of the external cause
CPT/HCPCS: 36415; 73700; 80048; 80053; 80076; 80307; 81001; 83036; 83605; 83735; 83880; 84443; 85025; 85610; 85652; 85730; 86141; 87040; 87426; 87804; 93971; 97110; 97116; 97163; G0378

== ENCOUNTER 2024-12-31 12:23 | Inpatient (IN) | payer BC ==
[~2024-12-31] VITALS: Ht 160 cm; Wt 73.6 kg
[~2024-12-31 12:23] MED LIST changes: +ACET-1882 PO; +ASPI1TAB20 PO; +CEFD300C2 PO; +DOCU-94 PO; +LINE1TAB6 PO; -LISI20TA56 PO; +PERCOT PO; +VALS1TAB57 PO
[2024-12-31] MEDS: SODIUM CHLORIDE 0.9% 1,000 ML IV ONE ×2 (13:00→13:10)
[2024-12-31 13:02] VITALS: O2SAT 93
--- NOTE | 2024-12-31 13:04 | ED.PDOC ---
General HPI Comments 59 year old female presents to the ED with a chief complaint of LT flank pain onset yesterday. Patient states she began experiencing LT flank pain and diarrhea yesterday, woke up today experiencing hematuria, nausea, vomiting. She states she had kidney stone in the past, symptoms feel similar. PMHx HTN. Denies headache, shortness of breath, chest pain, dizziness, fever, chills. No other symptoms or modifying factors present at this time. Chief Complaint: Flank Pain Time Seen by MD: 12:49 Primary Care Provider: NASH Loja notes: Medications, Allergies Allergies: Coded Allergies: Sulfamethoxazole w/Trimethoprim (Verified Allergy, Intermediate, Rash, 07/27/24) Home Meds Active Scripts Linezolid (Zyvox) 600 Mg Tab, 600 MG PO BID for 7 Days, #14 TAB Prov:BEKAH STUBBS RESIDENT 12/16/24 Cefdinir (Cefdinir) 300 Mg Cap, 1 CAP PO BID for 7 Days, #14 CAP Prov:BEKAH STUBBS RESIDENT 12/16/24 Valsartan (Valsartan) 80 Mg Tab, 80 MG PO DAILY for 30 Days, #30 TAB Prov:BEKAH STUBBS RESIDENT 12/16/24 Acetaminophen (Acetaminophen) 325 Mg Tab, 650 MG PO Q6HP PRN for 10 Days, #80 TAB Prov:BEKAH STUBBS RESIDENT 12/16/24 Reported Medications Oxycodone W/ Acetaminophen (Percocet 5/325MG) 1 Tab Tb, 1 TAB PO BID, #60 TAB 12/15/24 Docusate Sodium (Colace) 100 Mg Cap, 1 CAP PO BID, #30 CAP 12/15/24 Aspirin (Aspir-81) 81 Mg Tab, 1 TAB PO DAILY, #30 TAB 5 Refills 12/15/24 Allopurinol (Allopurinol) 100 Mg Tab, 100 MG PO DAILY for 30 Days, MG 12/07/24 Amlodipine Besylate (Amlodipine Besylate) 10 Mg Tab, 1 TAB PO DAILY, #30 TAB 5 Refills 07/27/24 Dapagliflozin Propanediol (Farxiga) 10 Mg Tab, 10 MG PO, TAB 07/27/24 Information Source: Patient Mode of Arrival: Ambulatory Severity: Moderate Timing: Days Duration: Since onset Prehospital treatment: None Onset: Spontaneous Symptoms: Hematuria History of: Kidney stone Location: (L)Flank Modifying factors: None associated signs and symptoms: Nausea, Vomiting, Flank Pain, Hematuria Past Medical History PAST MEDICAL HISTORY: HTN, Kidney Stones Surgical History: Denies all surgeries RISK COMPLIANCE MANAGER History: Denies all RISK COMPLIANCE MANAGER Hx Family History Family History: Reviewed,noncontributory to illness Social History Smoker: Non-Smoker Alcohol: Denies ETOH Use Drugs: Denies Drug Use Lives In: Home Constitutional: denies: chills, diaphoresis, fatigue, fever, malaise, sweats, weakness, others EENTM: denies: blurred vision, double vision, ear bleeding, ear discharge, ear drainage, ear pain, ear ringing, eye pain, eye redness, hearing loss, mouth pain, mouth swelling, nasal discharge, nose bleeding, nose congestion, nose pain, photophobia, tearing, throat pain, throat swelling, voice changes, others Respiratory: denies: cough, hemoptysis, orthopnea, SOB at rest, shortness of breath, SOB with excertion, stridor, wheezing, others Cardiovascular: denies: chest pain, dizzy spells, diaphoresis, Dyspnea on exertion, edema, irregular heart beat, left arm pain, lightheadedness, palpitations, PND, syncope, others Gastrointestinal: reports: diarrhea, nausea, vomiting; denies: abdomen distended, abdominal pain, blood streaked bowels, constipated, dysphagia, difficulty swallowing, hematemesis, melena, poor appetite, poor fluid intake, rectal bleeding, rectal pain, others Genitourinary: reports: flank pain, hematuria; denies: abnormal vagina bleeding, burning, dyspareunia, dysuria, frequency, incontinence, pain, , vagina discharge, urgency, others Neurological: denies: dizziness, fainting, headache, left sided numbness, left sided weakness, numbness, paresthesia, pre-existing deficit, right sided numbness, right sided weakness, seizure, speech problems, tingling, tremors, weakness, others Musculoskeletal: denies: back pain, gout, joint pain, joint swelling, muscle pain, muscle stiffness, neck pain, others Integumetry: denies: bruises, change in color, change in hair/nails, dryness, laceration, lesions, lumps, rash, wounds, others Allergic/Immunocompromised: denies: Difficulty Healing, Frequent Infections, Hives, Itching, others Hematologic/Lymphatic: denies: anemia, blood clots, easy bleeding, easy bruising, swollen glands, others Endocrine: denies: excessive hunger, excessive sweating, excessive thirst, excessive urination, flushing, intolerance to cold, intolerance to heat, unexplained weight gain, unexplained weight loss, others Psychiatric: denies: anxiety, bipolar disorder, depression, hopeless, panic disorder, schizophrenia, sleepless, suicidal, others All Other Systems: Reviewed and Negative Physical Exam General Appearance: Moderate Distress, Normal HEENT: Normal ENT Inspection, Pharynx Normal, TMs Normal Neck: Full Range of Motion, Non-Tender, Normal, Normal Inspection Respiratory: Chest Non-Tender, Lungs Clear, No Accessory Muscle Use, No Respiratory Distress, Normal Breath Sounds Cardiovascular: No Edema, No JVD, No Murmur, No Gallop, Normal Peripheral Pulses, Regular Rate/Rhythm Breast Exam: Deferred Gastrointestinal: Diffuse, No Organomegaly, No Pulsatile Mass, Normal Bowel Sounds, Soft Genitalia: Deferred Pelvic: Deferred Rectal: Deferred Extremities: No calf tenderness, Normal capillary refill, Normal inspection, Normal range of motion, Non-tender, No pedal edema Musculoskeletal : Apperance: Normal Neurologic: Alert, elementary instructional coach II-XII nml as Tested, No Motor Deficits, Normal Affect, Normal Mood, No Sensory Deficits Cerebellar Function: NOT DONE Reflexes: NOT DONE Skin: Dry, Normal Color, Warm Peripheral Pulses: 3+ Radial (R), 3+ Radial (L) Lymphatic: No Adenopathy Was a procedure done? Was a procedure done?: No Differential Diagnosis Kidney stone (Female): Musculoskeletal pain, Urinary obstruction, Urolithiasis X-Ray, Labs, Meds, VS Vital Signs Date Time Temp Pulse Resp B/P (MAP) Pulse Ox O2 Delivery O2 Flow Rate FiO2 12/31/24 13:39 78 15 126/87 12/31/24 13:09 108 17 141/86 12/31/24 13:04 98.3 108 17 141/96 (111) 95 98.3 12/31/24 13:02 93 Room Air* 0 21 12/31/24 12:45 98.1 111 20 127/90 (102) 99 98.1 Lab Test 12/31/24 13:36 12/31/24 12:47 Range/Units White Blood Count 12.0 H 4.4-10.8 10^3/uL Red Blood Count 3.63 L 4.0-5.20 10^6/uL Hemoglobin 10.9 L 12.2-16.2 g/dL Hematocrit 33.5 L 36.0-46.0 % Mean Corpuscular Volume 92.4 80.0-100.0 fL Mean Corpuscular Hemoglobin 29.9 28.0-32.0 pg Mean Corpuscular Hemoglobin Concent 32.4 32.0-36.0 g/dL Red Cell Distribution Width 16.4 H 11.8-14.3 % Platelet Count 600 H 140-450 10^3/uL Mean Platelet Volume 7.2 6.9-10.8 fL Neutrophils (%) (Auto) 88.3 H 37.0-80.0 % Lymphocytes (%) (Auto) 5.9 L 10.0-50.0 % Monocytes (%) (Auto) 5.1 0.0-12.0 % Eosinophils (%) (Auto) 0.0 0.0-7.0 % Basophils (%) (Auto) 0.7 0.0-2.0 % Neutrophils # (Auto) 10.6 H 1.6-8.6 10 ^3/uL Lymphocytes # (Auto) 0.7 0.4-5.4 10 ^3/uL Monocytes # (Auto) 0.6 0-1.3 10 ^3/uL Eosinophils # (Auto) 0 0-0.8 10 ^3/uL Basophils # (Auto) 0.1 0-0.2 10 ^3/uL Nucleated Red Blood Cells 0.0 % Sodium Level 140 136-145 mmol/L Potassium Level 5.0 3.5-5.1 mmol/L Chloride Level 109 H 98-107 mmol/L Carbon Dioxide Level 20 20-31 mmol/L Anion Gap 11 5-15 Blood Urea Nitrogen 37 H 9-23 mg/dL Creatinine 2.26 H 0.550-1.02 mg/dL Glomerular Filtration Rate Calc 24 >90 mL/min BUN/Creatinine Ratio 16.4 10.0-20.0 Serum Glucose 128 H 74-106 mg/dL Calcium Level 10.1 8.7-10.4 mg/dL Urine Color Yellow Yellow Urine Clarity Hazy H Clear Urine pH 5.5 5.0-9.0 Urine Specific [place] 1.022 1.001-1.035 Urine Protein 2+ H Negative Urine Ketones Negative Negative Urine Blood 1+ H Negative /uL Urine Nitrite Negative Negative Urine Bilirubin Negative Negative Urine Urobilinogen Normal Negative mg/dL Urine Leukocyte Esterase Negative Negative /uL Urine RBC 1 0 - 4 /hpf Urine Microscopic WBC 2 0-5 /HPF Urine Squamous Epithelial Cells Few <5 /hpf Urine Bacteria Few H None Seen /hpf Urine Glucose 2+ H Normal mg/dL Current Medications Medications (Trade) Dose Ordered Sig/Mike Route Start Time Stop Time Status Last Admin Morphine Sulfate 4 mg ONCE ONCE IV 12/31/24 13:00 12/31/24 13:01 DC 12/31/24 13:09 Ondansetron HCl (Zofran) 4 mg ONCE ONCE IV 12/31/24 13:00 12/31/24 13:01 DC 12/31/24 13:10 Sodium Chloride 1,000 ml @ 1,000 mls/hr Q1H ONCE IV 12/31/24 13:00 12/31/24 13:59 DC 12/31/24 13:10 Ceftriaxone Sodium 50 ml @ 100 mls/hr ONCE ONCE IV 12/31/24 14:00 12/31/24 14:29 12/31/24 14:13 Patient alert. Complaining of abdominal pain radiating to the left flank. Vitals stable. Answering questions. Tachycardia. Heart rate increased because of the pain. Establish intravenous access. Was given fluids. Was given Zofran. Was given morphine. Possible kidney stone. Reviewed her history. Explained to the patient. Continue cardiac monitoring. CT scan of the abdomen does show colitis pain Was given Rocephin. Was given Flagyl. Continues to have pain. Was given Dilaudid. [facility] [id number] [place] [id number] Ph: [phone] DIAGNOSTIC IMAGING Diagnostic Imaging Report : [id number] Signed PATIENT: YOLANDA AJ ACCT: [id number] UNIT: [id number] : 1965 LOC: ER ROOM / BED: / AGE / SEX: 59 / F ADM STATUS: REG ER SERVICE 1255 ORDERING PHYSICIAN: BLAS HONEYCUTT MD PROCEDURE(s): ABPL - CT AB PEL WO CON-NO ORAL OR IV REASON: stone ORDER NUMBER(s): [id number], ACCESSION NUMBER(s): [id number] Exam: CT CT AB PEL WO CON-NO ORAL OR IV History: stone Comparison Study: None Technique: Multidetector spiral CT of the abdomen and pelvis was performed from lung bases to pubic symphysis. Imaging was performed without IV contrast. Axial, coronal and sagittal multiplanar reformats were obtained from the axial data set by the technologist. Radiation dose : Abdomen/Pelvis: CTDIvol 16 mGy, DLP 947 mGy*cm. Findings: Evaluation of solid organs is limited due to lack of intravenous contrast use. Lung Bases: No acute or significant lung base finding. Normal heart size. No pleural or pericardial effusion. Liver: The liver is normal in size. No focal lesions. Gallbladder and biliary Tree: Unremarkable Spleen: Unremarkable Pancreas: The pancreas is grossly normal in appearance. Adrenal Glands: Unremarkable Kidneys: Left kidney is severely atrophic. Right renal cortical thinning and scarring. No hydronephrosis or nephrolithiasis. Bladder: Grossly unremarkable for degree of distention. Bowel: The stomach is grossly normal in appearance. Small bowel and colon are normal in caliber and distribution. Normal appendix is visualized in the right lower quadrant without findings of appendicitis. Wall thickening of the left colon with adjacent stranding. Ascites: Absent Lymphadenopathy: No mesenteric, retroperitoneal or periportal lymphadenopathy. Abdominal wall and Mesentery: Unremarkable. Vasculature: The visualized abdominal aorta is normal in size and caliber. Evaluation of abdominal and pelvic vessels is limited due to lack of intravenous contrast. Pelvic Organs: Left ovarian cyst measuring up to 28 mm. Musculoskeletal: No aggressive focal bony lesions, acute fractures or dislo cation. IMPRESSION: 1. Wall thickening of the descending colon with adjacent stranding suggesting colitis. Clinical correlation and continued follow-up is recommended. 2. Atrophic left kidney. Right renal cortical thinning and scarring. No hydronephrosis or nephrolithiasis. 3. Left ovarian cyst. Radiation optimization: All CT scans at this facility use at least one of these dose optimization techniques: Automated exposure control mA and/or kV adjustment per patient size (includes targeted exams where dose is matched to clinical indication) or iterative reconstruction. HS:Y ATED BY: ILIA BARAHONA MD DICTATED DATE/TIME: 12/31/241344 SIGNED BY: ILIA BARAHONA MD SIGNED DATE/TIME: 12/31/241344 CC: Time of 1ST Reevaluation: 13:19 Reevaluation 1ST: Unchanged Patient Education/Counseling: Diagnosis, Treatment, Prognosis Family Education/Counseling: No Family Present Additional Information The following tests were ordered, and results were reviewed by me: UA, CBC, CT AB PEL WO CON, BMP I reviewed and agreed with the following test results read by other providers: CT AB PEL WO CON I discussed treatment and results with medical personnel and: patient Comprehensive systems review obtained and negative except for what is stated in the HPI. Departure 1 Departure Time of Disposition: 13:21 Impression: Primary Impression: Acute abdominal pain Additional Impression: Colitis Disposition: ADMITTED INPATIENT Admit to: Med Surg Condition: Guarded Critical Care Note Critical Care Time?: No Stability Stability form required: No Heart Score Heart Score: Heart Score Response (Comments) Value History Slightly Suspicious 0 EKG Normal 0 Age 45-64 1 Risk Factors >3 or Hx ASHD 2 Troponin N/A 0 Total 3 I personally scribed for BLAS HONEYCUTT MD ([email or web address]) on 12/31/24 at 13:04. Electronically submitted by Vandana Weeks ([email or web address]). I personally scribed for BLAS HONEYCUTT MD ([email or web address]) on 12/31/24 at 14:23. Electronically submitted by Vandana Weeks ([email or web address]). BLAS HONEYCUTT MD Dec 31, 2024 13:04
[2024-12-31] MEDS: MORPHINE SULFATE 4 MG/ML SYR/VIAL IV ONE (13:09)
[2024-12-31] MEDS: ONDANSETRON HCL 4 MG/2 ML VIAL IV ONE (13:10)
[2024-12-31 13:25] LABS: Urine Bacteria FEW /hpf (None Seen); Urine Blood 1+ /uL (Negative); Urine Color Yellow (Yellow); Urine Protein, UAD 2+ (Negative); Urine Specific Gravity 1.022 (1.001-1.035); Urine Squamous Epithelial Cell FEW /hpf (<5); Urine Urobilinogen Normal (Negative); Urine WBC 2 /HPF (0-5); Urine pH 5.5 (5.0-9.0)
[2024-12-31 13:27] LABS: Urine Clarity Hazy (Clear)
--- NOTE | 2024-12-31 13:47 | DVH ---
Exam: CT CT AB PEL WO CON-NO ORAL OR IV History: stone Comparison Study: None Technique: Multidetector spiral CT of the abdomen and pelvis was performed from lung bases to pubic symphysis. Imaging was performed without IV contrast. Axial, coronal and sagittal multiplanar reform ats were obtained from the axial data set by the technologist. Radiation dose : Abdomen/Pelvis: CTDIvol 16 mGy, DLP 947 mGy*cm. Findings: Evaluation of solid organs is limited due to lack of intravenous contrast use. Lung Bases: No acute or significant lung base finding. Normal heart size. No pleural or pericardial effusion. Liver: The liver is normal in size. No focal lesions. Gallbladder and biliary Tree: Unremarkable Spleen: Unremarkable Pancreas: The pancreas is grossly normal in appearance. Adrenal Glands: Unremarkable Kidneys: Left kidney is severely atrophic. Right renal cortical thinning and scarring. No hydronephro sis or nephrolithiasis. Bladder: Grossly unremarkable for degree of distention. Bowel: The stomach is grossly normal in appearance. Small bowel and colon are normal in caliber and d istribution. Normal appendix is visualized in the right lower quadrant without findings of appendicit is. Wall thickening of the left colon with adjacent stranding. Ascites: Absent Lymphadenopathy: No mesenteric, retroperitoneal or periportal lymphadenopathy. Abdominal wall and Mesentery: Unremarkable. Vasculature: The visualized abdominal aorta is normal in size and caliber. Evaluation of abdominal a nd pelvic vessels is limited due to lack of intravenous contrast. Pelvic Organs: Left ovarian cyst measuring up to 28 mm. Musculoskeletal: No aggressive focal bony lesions, acute fractures or dislocation. IMPRESSION: 1. Wall thickening of the descending colon with adjacent stranding suggesting colitis. Clinical supa elation and continued follow-up is recommended. 2. Atrophic left kidney. Right renal cortical thinning and scarring. No hydronephrosis or nephrolith iasis. 3. Left ovarian cyst. Radiation optimization: All CT scans at this facility use at least one of these dose optimization sudhir hniques: Automated exposure control mA and/or kV adjustment per patient size (includes targeted exams where dose is matched to clinical indication) or iterative reconstruction. HS:Y
[2024-12-31 13:52] LABS: Eosinophils # (auto) 0 10 ^3/uL (0-0.8); Monocytes # (auto) 0.6 10 ^3/uL (0-1.3)
[2024-12-31 13:55] LABS: Basophils # (auto) 0.1 10 ^3/uL (0-0.2); Basophils % (auto) 0.7 % (0.0-2.0); Hematocrit 33.5 % (36.0-46.0); Hemoglobin 10.9 g/dL (12.2-16.2); Lymphocytes # (auto) 0.7 10 ^3/uL (0.4-5.4); Lymphocytes % (auto) 5.9 % (10.0-50.0); Mean Corpuscular Hemoglobin 29.9 pg (28.0-32.0); Mean Corpuscular Hgb Conc. 32.4 g/dL (32.0-36.0); Mean Corpuscular Volume 92.4 fL (80.0-100.0); Monocytes % (auto) 5.1 % (0.0-12.0); Neutrophils # (auto) 10.6 10 ^3/uL (1.6-8.6); Neutrophils % (auto) 88.3 % (37.0-80.0); Platelet Count (auto) 600 10^3/uL (140-450); Red Blood Cells 3.63 10^6/uL (4.0-5.20); Red Cell Distribution Width 16.4 % (11.8-14.3)
[2024-12-31 13:57] LABS: Sodium 140 mmol/L (136-145)
[2024-12-31 13:58] LABS: Anion Gap 11 (5-15); Calcium 10.1 mg/dL (8.7-10.4); Carbon Dioxide 20 mmol/L (20-31)
[2024-12-31 14:02] LABS: Chloride 109 mmol/L (98-107)
[2024-12-31 14:03] LABS: BUN/Creatinine Ratio 16.4 (10.0-20.0)
[2024-12-31 14:06] LABS: Blood Urea Nitrogen 37 mg/dL (9-23); Glucose 128 mg/dL (74-106)
[2024-12-31] MEDS: cefTRIAXone 1GM/50ML D5W 50 ML IV ONE (14:13)
[2024-12-31] MEDS: HYDROmorphone HCL 2 MG/ML VL/or syr IV ONE (14:26)
[2024-12-31] MEDS: metroNIDAZOLE 500MG/100ML 100 ML IV ONE (15:41)
--- NOTE | 2024-12-31 16:40 | DVHHPRES ---
History of Present Illness Resident Creating Document: QUOC DIAZ RESIDENT History of Present Illness This is a 59-year-old female with past medical history of hypertension, CKD stage 4, status post bilateral knee replacement, kidney stone presented to the ED with a chief complaint of intractable abdominal pain ,vomiting and diarrhea since yesterday prior to this admission. The patient states that abdominal pain started in the left lower quadrant which was colicky in nature, 10/10, radiates to the back and also in the central part of the abdomen and associated with few episodes of vomiting and diarrhea. She also mentioned noticing blood during wiping but no blood in the stool. She denied fever, chills, malaise, hemoptysis, hematemesis, burning sensation in the urine, recent traveling, recent contact or any change in the bowel and bladder habit. PCP: reinaldo Goodwin F-NP Web Coordinator: Pra[facility] [place] Home medications: Allopurinol 100 mg p.o. daily, amlodipine 10 mg p.o. daily, Farxiga 10 mg p.o daily. Allergies: Allergic to bactrim Past Medical History Hypertension, CKD stage IV, Kidney stone Past Surgical History: , Total knee replacement Family History: None Smoke: No ALCOHOL: none Drugs: None Lives: with Family Past Social History Nonsmoker, nonalcoholic and never tried any drugs. Lives with family Review of Systems Constitutional: No: Fever, Chills, Sweats, Weakness, Malaise, Other Eyes: No: Pain, Vision change, Conjunctivae inflammation, Eyelid inflammation, Other, Redness ENT: No: Ear pain, Ear discharge, Nose pain, Nose discharge, Nose congestion, Mouth pain, Mouth swelling, Throat pain, Throat swelling, Other Respiratory: No: Cough, Dry, Shortness of breath, SOB with excertion, Wheezing, Hemoptysis, Pleuritic Pain, Sputum, Wheezing, Other Cardiovascular: No: Chest Pain, Palpitations, Orthopnea, Paroxysmal Noc. Dyspnea, Edema, Lt Headedness, Other Gastrointestinal: Nausea, Vomiting, Abdominal Pain, Diarrhea; No: Constipation, Melena, Hematochezia, Other Genitourinary: No Dysuria, No Frequency, No Incontinence, No Hematuria, No Retention, No Other Musculoskeletal: No: other, neck pain, shoulder pain, arm pain, back pain, hand pain, leg pain, foot pain Skin: No: Rash, Lesions, Jaundice, Bruising, Other Neurological: No: Weakness, Numbness, Incoordination, Change in speech, Confusion, Seizures, Other Allergies: Coded Allergies: Sulfamethoxazole w/Trimethoprim (Verified Allergy, Intermediate, Rash, 07/27/24) Exam Vital Signs Vital Signs Date Time Temp Pulse Resp B/P (MAP) Pulse Ox O2 Delivery O2 Flow Rate FiO2 12/31/24 15:16 98.7 87 17 128/69 (88) 97 98.7 12/31/24 13:02 Room Air* 0 21 Exam Physical examination: General Appearance: Alert, Oriented X3, Cooperative, mild distress HEENT: Atraumatic, PERRLA, EOMI, Mucous membrane moist/pink Respiratory: Clear to auscultation, Normal air movement Cardiovascular: Regular rate, Normal S1, Normal S2, No murmurs, no chest wall tenderness Abdominal: Normal bowel sounds, Soft, tenderness in the left lower quadrant, No hepatospenomegaly, No masses Extremities: No clubbing, No cyanosis, No edema, Normal pulses, No tenderness/swelling Skin: No rashes, No breakdown, No significant lesion Neuro: Normal gait, Normal speech, Strength at 5/5 X4 ext, Normal tone, Sensation intact, grossly intact cranial nerves. Psych/Mental Status: Mental status NL, Mood NL Labs/Xrays Labs Test 12/31/24 13:36 12/31/24 12:47 Range/Units White Blood Count 12.0 H 4.4-10.8 10^3/uL Red Blood Count 3.63 L 4.0-5.20 10^6/uL Hemoglobin 10.9 L 12.2-16.2 g/dL Hematocrit 33.5 L 36.0-46.0 % Mean Corpuscular Volume 92.4 80.0-100.0 fL Mean Corpuscular Hemoglobin 29.9 28.0-32.0 pg Mean Corpuscular Hemoglobin Concent 32.4 32.0-36.0 g/dL Red Cell Distribution Width 16.4 H 11.8-14.3 % Platelet Count 600 H 140-450 10^3/uL Mean Platelet Volume 7.2 6.9-10.8 fL Neutrophils (%) (Auto) 88.3 H 37.0-80.0 % Lymphocytes (%) (Auto) 5.9 L 10.0-50.0 % Monocytes (%) (Auto) 5.1 0.0-12.0 % Eosinophils (%) (Auto) 0.0 0.0-7.0 % Basophils (%) (Auto) 0.7 0.0-2.0 % Neutrophils # (Auto) 10.6 H 1.6-8.6 10 ^3/uL Lymphocytes # (Auto) 0.7 0.4-5.4 10 ^3/uL Monocytes # (Auto) 0.6 0-1.3 10 ^3/uL Eosinophils # (Auto) 0 0-0.8 10 ^3/uL Basophils # (Auto) 0.1 0-0.2 10 ^3/uL Nucleated Red Blood Cells 0.0 % Sodium Level 140 136-145 mmol/L Potassium Level 5.0 3.5-5.1 mmol/L Chloride Level 109 H 98-107 mmol/L Carbon Dioxide Level 20 20-31 mmol/L Anion Gap 11 5-15 Blood Urea Nitrogen 37 H 9-23 mg/dL Creatinine 2.26 H 0.550-1.02 mg/dL Glomerular Filtration Rate Calc 24 >90 mL/min BUN/Creatinine Ratio 16.4 10.0-20.0 Serum Glucose 128 H 74-106 mg/dL Calcium Level 10.1 8.7-10.4 mg/dL Urine Color Yellow Yellow Urine Clarity Hazy H Clear Urine pH 5.5 5.0-9.0 Urine Specific [place] 1.022 1.001-1.035 Urine Protein 2+ H Negative Urine Ketones Negative Negative Urine Blood 1+ H Negative /uL Urine Nitrite Negative Negative Urine Bilirubin Negative Negative Urine Urobilinogen Normal Negative mg/dL Urine Leukocyte Esterase Negative Negative /uL Urine RBC 1 0 - 4 /hpf Urine Microscopic WBC 2 0-5 /HPF Urine Squamous Epithelial Cells Few <5 /hpf Urine Bacteria Few H None Seen /hpf Urine Glucose 2+ H Normal mg/dL Assessment/Plan Assessment/Plan Assessment and plan: # Intractable abdominal pain likely due to colitis - CT abdomen pelvis revealed Wall thickening of the descending colon with adjacent stranding suggesting colitis. - Clear liquid diet - Patient was given IV bolus fluid followed by IV normal saline at 75 mL/hours - IV ceftriaxone 1 g daily and IV metronidazole 500 mg t.i.d. - IV morphine 2 mg q.4 p.r.n. - IV ondansetron 4 mg Q 8 p.r.n. - Sent stool for WBC, stool bacterial culture and C diff study # PAMELA on CKD stage 4 likely hemodynamically mediated/VMN - IV normal saline at 75 mL/hours - monitor BMP # status post bilateral knee replacement # PUD prophylaxis - Pepcid 20 mg po daily # DVT prophylaxis - SCD Goal of care discussed with the patient for more than 20 minutes full code Plan discussed with Dr. Back Plan discussed with: Patient, Other My Orders Orders - QUOC DIAZ RESIDENT Procedure Category Date Status Time Admit ADMIT 12/31/24 Transmitted 16:34 Date of Service: Dec 31, 2024 Billing Provider: WEST BACK MD Common Visit Codes: 09000-[id number] INP/OBS CARE (HIGH) QUOC DIAZ RESIDENT Dec 31, 2024 16:40 WEST BACK MD Jan 01, 2025 14:17
[2024-12-31] MEDS ORDERED: SODIUM CHLORIDE 0.9% 1,000 ML IV ONE (16:45)
[2024-12-31 18:00] VITALS: BP 139/61; PULSE 82; RESP 18; TEMP 97.8; O2SAT 97
[2024-12-31 18:43] VITALS: PULSE 82; RESP 18; O2SAT 98
[2024-12-31] MEDS: MORPHINE SULFATE INJ 2 MG/ml SYRG IV PRN (19:01)
[2024-12-31 20:00] VITALS: PULSE 72; RESP 19; O2SAT 98
[2024-12-31 21:00] VITALS: BP 156/73; PULSE 72; RESP 19; TEMP 98.1; O2SAT 98
[2024-12-31] MEDS: SODIUM CHLORIDE 0.9% 1,000 ML IV SCH (21:48)
[2024-12-31] MEDS: metroNIDAZOLE 500MG/100ML 100 ML IV SCH (21:48)
[2024-12-31] MEDS: ONDANSETRON HCL 4 MG/2 ML VIAL IV SCH (22:00)
[2025-01-01] VITALS (8 sets, daily range): BP systolic 122–161; BP diastolic 49–79; PULSE 60–82; RESP 18–19; TEMP 98.1–98.6; O2SAT 94–98
[2025-01-01 06:47] LABS: Basophils # (auto) 0 10 ^3/uL (0-0.2); Basophils % (auto) 0.4 % (0.0-2.0); Eosinophils # (auto) 0.1 10 ^3/uL (0-0.8); Eosinophils % (auto) 1.7 % (0.0-7.0); Hematocrit 30.2 % (36.0-46.0); Hemoglobin 9.8 g/dL (12.2-16.2); Lymphocytes % (auto) 12.2 % (10.0-50.0); Mean Corpuscular Hemoglobin 29.9 pg (28.0-32.0); Mean Corpuscular Hgb Conc. 32.2 g/dL (32.0-36.0); Mean Corpuscular Volume 92.8 fL (80.0-100.0); Monocytes # (auto) 0.7 10 ^3/uL (0-1.3); Monocytes % (auto) 8.5 % (0.0-12.0); Neutrophils % (auto) 77.2 % (37.0-80.0); Platelet Count (auto) 414 10^3/uL (140-450); Red Blood Cells 3.26 10^6/uL (4.0-5.20); Red Cell Distribution Width 16.1 % (11.8-14.3); White Blood Cell 7.8 10^3/uL (4.4-10.8)
[2025-01-01 07:06] LABS: Alkaline Phosphatase 80 U/L (46-116); Anion Gap 7 (5-15); BUN/Creatinine Ratio 13.9 (10.0-20.0); Calcium 9.1 mg/dL (8.7-10.4); Carbon Dioxide 23 mmol/L (20-31); Glucose 89 mg/dL (74-106); Potassium 4.9 mmol/L (3.5-5.1); Sodium 140 mmol/L (136-145); Total Protein 6.1 g/dL (5.7-8.2)
[2025-01-01 07:08] LABS: Albumin 3.7 g/dL (3.2-4.8); Bilirubin, Total 0.5 mg/dL (0.2-1.0)
[2025-01-01 07:12] LABS: Alanine Aminotransferase < 9 U/L (7-40); Aspartate Aminotransferase 9 U/L (13-40); Blood Urea Nitrogen 25 mg/dL (9-23); Chloride 110 mmol/L (98-107)
[2025-01-01] MEDS: cefTRIAXone 1GM/50ML D5W 50 ML IV SCH (08:35)
[2025-01-01] MEDS: FAMOTIDINE 20 MG TAB PO SCH (08:35)
--- NOTE | 2025-01-01 15:12 | DVH ---
INDICATION: Pervaginal bledding TECHNIQUE: Multiple real-time grayscale transabdominal sonographic images along with color and duplex Doppler of the uterus and ovaries were obtained. COMPARISON: None FINDINGS: The uterus measures 9 x 5 x 3 cm. The endometrial stripe measures 0.4 cm. The right ovary measures 3 x 2 x 3 cm. The left ovary measures 4 x 3 x 4 cm. 3cm left ovarian cyst Subsequent color and duplex Doppler interrogation of the ovaries demonstrated symmetric vascular flow to both ovaries, though this does not exclude the possibility of torsion due to the dual blood suppl y. IMPRESSION: 1. Grossly unremarkable pelvic ultrasound.
--- NOTE | 2025-01-01 16:42 | DVHPNRES ---
Progress Note Date Seen: Jan 01, 2025 Resident Creating Document: QUOC DIAZ RESIDENT Medical Necessity Reason Pt with a Central, PICC or Fol: No Subjective Review of Systems Patient was seen and examined on the bedside. She is alert oriented x3. Complaint of severe left lower quadrant abdominal pain but mentioned tolerating oral diet and resolved nausea and vomiting. No other active complaint. Objective vital signs Vital Sign Date Time Temp Pulse Resp B/P (MAP) Pulse Ox O2 Delivery O2 Flow Rate FiO2 01/01/25 13:16 60 18 122/49 01/01/25 13:00 98.6 96 98.6 01/01/25 08:00 Room Air* 0 21 Total Intake and Output 12/31/24 12/31/24 01/01/25 15:00 23:00 07:00 Intake Total 1100 ml Balance 1100 ml medications Current Medications Medications Dose Ordered Sig/Mike Route Start Time Stop Time Status Last Admin Dose Admin Ceftriaxone Sodium 50 ml @ 100 mls/hr DAILY IV 01/01/25 10:00 01/01/25 08:35 100 MLS/HR Metronidazole 100 ml @ 100 mls/hr TID IV 12/31/24 22:00 01/01/25 13:06 100 MLS/HR Morphine Sulfate 2 mg Q4HPRN PRN IV 12/31/24 16:55 01/01/25 13:16 2 MG Ondansetron HCl 4 mg Q8HPRN IV 12/31/24 22:00 01/01/25 13:15 4 MG Sodium Chloride 1,000 ml @ 75 mls/hr [id number] IV 12/31/24 18:45 01/01/25 08:35 75 MLS/HR Famotidine 20 mg DAILY PO 01/01/25 10:00 01/01/25 08:35 20 MG Allopurinol 100 mg DAILY PO 01/02/25 10:00 Aspirin 81 mg DAILY PO 01/02/25 10:00 Docusate Sodium 100 mg BID PO 01/01/25 22:00 Oxycodone/ Acetaminophen 1 tab BID PO 01/01/25 22:00 Patient Own Medication 1 tab DAILY PO 01/02/25 10:00 UNV Amlodipine Besylate 10 mg DAILY PO 01/02/25 10:00 Examination Physical examination: General Appearance: Alert, Oriented X3, Cooperative, No acute distress HEENT: Atraumatic, PERRLA, EOMI, Mucous membrane moist/pink Respiratory: Clear to auscultation, Normal air movement Cardiovascular: Regular rate, Normal S1, Normal S2, No murmurs, no chest wall tenderness Abdominal: Normal bowel sounds, Soft, mild tenderness in the LLQ, No hepatospenomegaly, No masses Extremities: No clubbing, No cyanosis, No edema, Normal pulses, No tenderness/swelling Skin: No rashes, No breakdown, No significant lesion Neuro: Normal gait, Normal speech, Strength at 5/5 X4 ext, Normal tone, Sensation intact, Cranial nerves 3-12 NL, Reflexes 2+ Psych/Mental Status: Mental status NL, Mood NL laboratory and microbiology Laboratory Tests 01/01/25 05:51 Test 01/01/25 05:51 Range/Units Serum Glucose 89 74-106 mg/dL Labs and/or images reviewed: Labs reviewed by me, Image(s) reviewed by me Problem List/Assessment/Plan Problem List/Assessment/Plan Assessment and plan: # Intractable abdominal pain likely due to colitis - CT abdomen pelvis revealed Wall thickening of the descending colon with adjacent stranding suggesting colitis. - Clear liquid diet - Patient was given IV bolus fluid followed by IV normal saline at 75 mL/hours - IV ceftriaxone 1 g daily and IV metronidazole 500 mg t.i.d. - IV morphine 2 mg q.4 p.r.n. - IV ondansetron 4 mg Q 8 p.r.n. - Sent stool for WBC, stool bacterial culture and C diff study # PAMELA on CKD stage 4 likely hemodynamically mediated/VMN - IV normal saline at 75 mL/hours - monitor BMP # status post bilateral knee replacement # PUD prophylaxis - Pepcid 20 mg po daily # DVT prophylaxis - SCD Goal of care discussed with the patient for more than 20 minutes full code Plan discussed with: Patient, Other My Orders My Orders Orders - QUOC DIAZ RESIDENT Procedure Category Date Status Time Sodium Chloride 0.9% PHA 12/31/24 In Process 18:45 Clear Liq Diet DIET 01/01/25 Transmitted Breakfast Stool Bacterial PILAR 12/31/24 Uncollected Culture 18:47 Stool Wbc LAB 12/31/24 Logged 18:47 Stool Occult Blood LAB 12/31/24 Uncollected 18:47 Famotidine Tablet PHA 01/01/25 In Process (Pepcid Tablet) 10:00 Clostridium Difficile PILAR 12/31/24 Uncollected Toxin 18:54 Allopurinol Tablet PHA 01/02/25 In Process (Zyloprim Tablet) 10:00 Aspirin Enteric PHA 01/02/25 In Process Coated Tablet 10:00 Docusate Sodium PHA 01/01/25 In Process Capsule (Colace 22:00 Oxycodone W/ Acet PHA 01/01/25 In Process 5/325mg Tab (Percocet 22:00 Amlodipine Tablet PHA 01/02/25 In Process (Norvasc Tablet) 10:00 Pelvic US 01/01/25 Resulted 13:27 Mrsa Screen PILAR 01/01/25 In Process 10:08 QUOC DIAZ RESIDENT Jan 01, 2025 16:42
[2025-01-01] MEDS: OXYCODONE W/ ACETAMINOPHEN 5/325MG TABLET PO SCH (22:00)
[2025-01-01] MEDS: DOCUSATE SOD 100 MG CAP PO SCH (22:28)
[2025-01-02 01:00] VITALS: BP 113/48; PULSE 63; RESP 17; TEMP 98; O2SAT 96
[2025-01-02] MEDS ORDERED: MORPHINE SULFATE INJ 2 MG/ml SYRG IV PRN (04:45)
[2025-01-02 05:00] VITALS: BP 117/51; PULSE 66; RESP 19; TEMP 98.1; O2SAT 96
[2025-01-02 07:15] LABS: Basophils # (auto) 0.1 10 ^3/uL (0-0.2); Eosinophils # (auto) 0.2 10 ^3/uL (0-0.8); Eosinophils % (auto) 2.2 % (0.0-7.0); Hematocrit 28.7 % (36.0-46.0); Hemoglobin 9.4 g/dL (12.2-16.2); Lymphocytes # (auto) 1.3 10 ^3/uL (0.4-5.4); Lymphocytes % (auto) 19.2 % (10.0-50.0); Mean Corpuscular Hemoglobin 30.3 pg (28.0-32.0); Mean Corpuscular Hgb Conc. 32.7 g/dL (32.0-36.0); Mean Corpuscular Volume 92.5 fL (80.0-100.0); Monocytes # (auto) 0.5 10 ^3/uL (0-1.3); Monocytes % (auto) 7.5 % (0.0-12.0); Neutrophils # (auto) 4.9 10 ^3/uL (1.6-8.6); Neutrophils % (auto) 70.1 % (37.0-80.0); Platelet Count (auto) 416 10^3/uL (140-450); Red Cell Distribution Width 15.8 % (11.8-14.3)
[2025-01-02 07:33] LABS: Potassium 5.1 mmol/L (3.5-5.1); Sodium 140 mmol/L (136-145)
[2025-01-02 07:34] LABS: Anion Gap 8 (5-15); Carbon Dioxide 23 mmol/L (20-31)
[2025-01-02 07:39] LABS: Glucose 83 mg/dL (74-106)
[2025-01-02 07:40] LABS: BUN/Creatinine Ratio 9.2 (10.0-20.0); Blood Urea Nitrogen 15 mg/dL (9-23)
[2025-01-02 07:47] LABS: Chloride 109 mmol/L (98-107)
[2025-01-02 08:00] VITALS: PULSE 76; RESP 18; O2SAT 94
[2025-01-02 08:22] VITALS: BP 142/45; PULSE 61; RESP 20; TEMP 98; O2SAT 97
[2025-01-02] MEDS: ASPirin-EC 81 mg tab PO SCH (09:22)
[2025-01-02] MEDS: ALLOPURINOL 100 MG TAB PO SCH (09:23)
[2025-01-02] MEDS: amLODIPine BESYLATE 5 MG TAB PO SCH (09:24)
[2025-01-02] MEDS ORDERED: PATIENTS OWN MEDICATION (Amlodipine Besylate 1 TAB) PO SCH (10:00)
[2025-01-02] MEDS ORDERED: AUG875T PO (11:59)
[2025-01-02 12:29] VITALS: BP 142/45
[2025-01-02 13:11] VITALS: BP 136/65; PULSE 66; RESP 20; TEMP 98.4; O2SAT 97
[2025-01-02] MEDS ORDERED: OXYC-962 PO (14:33)
--- NOTE | 2025-01-02 16:32 | DVHDSRES ---
Discharge Summary Date of Admission Resident Creating Document: QUOC DIAZ RESIDENT Dec 31, 2024 at 16:34 Date of Discharge: Jan 02, 2025 Admitting Diagnosis Intractable abdominal pain likely due to colitis Wounds: No wound was present. Labs/Diagnostic Data: Laboratory Results Test 01/02/25 09:00 01/02/25 06:27 01/01/25 11:49 01/01/25 05:51 Stool Occult Blood Positive (Negative) Stool Occult Blood Sample #3 (Negative) Stool for White Cells Few White Blood Count 7.0 10^3/uL (4.4-10.8) Red Blood Count 3.10 10^6/uL (4.0-5.20) Hemoglobin 9.4 g/dL (12.2-16.2) Hematocrit 28.7 % (36.0-46.0) Mean Corpuscular Volume 92.5 fL (80.0-100.0) Mean Corpuscular Hemoglobin 30.3 pg (28.0-32.0) Mean Corpuscular Hemoglobin Concent 32.7 g/dL (32.0-36.0) Red Cell Distribution Width 15.8 % (11.8-14.3) Platelet Count 416 10^3/uL (140-450) Mean Platelet Volume 7.2 fL (6.9-10.8) Neutrophils (%) (Auto) 70.1 % (37.0-80.0) Lymphocytes (%) (Auto) 19.2 % (10.0-50.0) Monocytes (%) (Auto) 7.5 % (0.0-12.0) Eosinophils (%) (Auto) 2.2 % (0.0-7.0) Basophils (%) (Auto) 1.0 % (0.0-2.0) Neutrophils # (Auto) 4.9 10 ^3/uL (1.6-8.6) Lymphocytes # (Auto) 1.3 10 ^3/uL (0.4-5.4) Monocytes # (Auto) 0.5 10 ^3/uL (0-1.3) Eosinophils # (Auto) 0.2 10 ^3/uL (0-0.8) Basophils # (Auto) 0.1 10 ^3/uL (0-0.2) Nucleated Red Blood Cells 0.0 % Sodium Level 140 mmol/L (136-145) Potassium Level 5.1 mmol/L (3.5-5.1) Chloride Level 109 mmol/L (98-107) Carbon Dioxide Level 23 mmol/L (20-31) Anion Gap 8 (5-15) Blood Urea Nitrogen 15 mg/dL (9-23) Creatinine 1.63 mg/dL (0.550-1.02) Glomerular Filtration Rate Calc 36 mL/min (>90) BUN/Creatinine Ratio 9.2 (10.0-20.0) Serum Glucose 83 mg/dL (74-106) Calcium Level 9.0 mg/dL (8.7-10.4) POC Glucose 86 mg/dl (70-106) Total Bilirubin 0.5 mg/dL (0.2-1.0) Aspartate Amino Transferase (AST) 9 U/L (13-40) Alanine Aminotransferase (ALT) < 9 U/L (7-40) Alkaline Phosphatase 80 U/L (46-116) Total Protein 6.1 g/dL (5.7-8.2) Albumin 3.7 g/dL (3.2-4.8) Test 12/31/24 12:47 Urine Color Yellow (Yellow) Urine Clarity Hazy (Clear) Urine pH 5.5 (5.0-9.0) Urine Specific [place] 1.022 (1.001-1.035) Urine Protein 2+ (Negative) Urine Ketones Negative (Negative) Urine Blood 1+ /uL (Negative) Urine Nitrite Negative (Negative) Urine Bilirubin Negative (Negative) Urine Urobilinogen Normal mg/dL (Negative) Urine Leukocyte Esterase Negative /uL (Negative) Urine RBC 1 /hpf (0 - 4) Urine Microscopic WBC 2 /HPF (0-5) Urine Squamous Epithelial Cells Few /hpf (<5) Urine Bacteria Few /hpf (None Seen) Urine Glucose 2+ mg/dL (Normal) Other Laboratory Tests 01/02/25 06:27 Brief Hx & Hospital Course: This is a 59-year-old female with past medical history of hypertension, CKD stage 4, status post bilateral knee replacement, kidney stone presented to the ED with a chief complaint of intractable abdominal pain ,vomiting and diarrhea since yesterday prior to this admission. The patient states that abdominal pain started in the left lower quadrant which was colicky in nature, 07/19, radiates to the back and also in the central part of the abdomen and associated with few episodes of vomiting and diarrhea. She also mentioned noticing blood during wiping but no blood in the stool. She denied fever, chills, malaise, hemoptysis, hematemesis, burning sensation in the urine, recent traveling, recent contact or any change in the bowel and bladder habit. Hospital course: Initial CT abdomen pelvis revealed Wall thickening of the descending colon with adjacent stranding suggesting colitis. Patient was treated with Clear liquid diet, IV bolus fluid followed by IV normal saline at 75 mL/hour, IV ceftriaxone 1 g daily and IV metronidazole 500 mg t.i.d, IV morphine 2 mg q.4 p.r.n.,IV ondansetron 4 mg Q 8 p.r.n. PAMELA on CKD stage 4 likely hemodynamically mediated improved. Patient was tolerating oral diet and mentioned improvement of abdominal pain, nausea and vomiting. Discharge plan was discussed with the patient and all questions were answered. Patient is being discharged to home. Physical examination: General Appearance: Alert, Oriented X3, Cooperative, No acute distress HEENT: Atraumatic, PERRLA, EOMI, Mucous membrane moist/pink Respiratory: Clear to auscultation, Normal air movement Cardiovascular: Regular rate, Normal S1, Normal S2, No murmurs, no chest wall tenderness Abdominal: Normal bowel sounds, Soft, No tenderness, No hepatospenomegaly, No masses Extremities: No clubbing, No cyanosis, No edema, Normal pulses, No tenderness/swelling Skin: No rashes, No breakdown, No significant lesion Neuro: Normal gait, Normal speech, Strength at 5/5 X4 ext, Normal tone, Sensation intact, Cranial nerves 3-12 NL, Reflexes 2+ Psych/Mental Status: Mental status NL, Mood NL Discharge Diagnosis: # Intractable abdominal pain likely due to colitis # PAMELA on CKD stage 4 likely hemodynamically mediated/VMN improved # status post bilateral knee replacement Discharge plan: Disposition: Home Medications: Augmentin 875 mg p.o. b.i.d. for 5 days and continue home medications Diet : Full liquid diet for 1 week follow up : PCP in 1 week Outpatient Gastroenterology for possible colonoscopy in 1-2 weeks Consults/Reason for consult No consultation was done Operations or Procedures Exam: CT CT AB PEL WO CON-NO ORAL OR IV Findings: Evaluation of solid organs is limited due to lack of intravenous contrast use. Lung Bases: No acute or significant lung base finding. Normal heart size. No pleural or pericardial effusion. Liver: The liver is normal in size. No focal lesions. Gallbladder and biliary Tree: Unremarkable Spleen: Unremarkable Pancreas: The pancreas is grossly normal in appearance. Adrenal Glands: Unremarkable Kidneys: Left kidney is severely atrophic. Right renal cortical thinning and scarring. No hydronephrosis or nephrolithiasis. Bladder: Grossly unremarkable for degree of distention. Bowel: The stomach is grossly normal in appearance. Small bowel and colon are normal in caliber and distribution. Normal appendix is visualized in the right lower quadrant without findings of appendicitis. Wall thickening of the left colon with adjacent stranding. Ascites: Absent Lymphadenopathy: No mesenteric, retroperitoneal or periportal lymphadenopathy. Abdominal wall and Mesentery: Unremarkable. Vasculature: The visualized abdominal aorta is normal in size and caliber. Evaluation of abdominal and pelvic vessels is limited due to lack of intravenous contrast. Pelvic Organs: Left ovarian cyst measuring up to 28 mm. Musculoskeletal: No aggressive focal bony lesions, acute fractures or dislocation. IMPRESSION: 1. Wall thickening of the descending colon with adjacent stranding suggesting colitis. Clinical correlation and continued follow-up is recommended. 2. Atrophic left kidney. Right renal cortical thinning and scarring. No hydronephrosis or nephrolithiasis. 3. Left ovarian cyst. NDICATION: Pervaginal bledding FINDINGS: The uterus measures 9 x 5 x 3 cm. The endometrial stripe measures 0.4 cm. The right ovary measures 3 x 2 x 3 cm. The left ovary measures 4 x 3 x 4 cm. 3cm left ovarian cyst Subsequent color and duplex Doppler interrogation of the ovaries demonstrated symmetric vascular flow to both ovaries, though this does not exclude the possibility of torsion due to the dual blood supply. IMPRESSION: 1. Grossly unremarkable pelvic ultrasound. Condition at Discharge: Stable Final Diagnosis/Problems List # Intractable abdominal pain likely due to colitis # PAMELA on CKD stage 4 likely hemodynamically mediated/VMN improved # status post bilateral knee replacement Discharge Disposition: Home Discharge Instruct/Medications Diet: Renal Diet comment: Full liquid diet for 1 week Activity: No Restrictions, As Tolerated Follow Up/Referral: Follow up with PCP in 1 week. Medications: Augmentin 875 mg p.o. b.i.d. for 5 days Discharge Statement: "Patient was advised to return to the ER or call 911 if any headaches, dizziness, shortness of breath, chest pain, abdominal pain, bleeding, fevers, or worsening of medical condition. Patient was counseled about treatment plan, medications, possible side effects, patientverbalized understanding. All questions were answered to the best of my ability. This discharge took greater then 30 minutes in planning, reviewing documentation, counseling the patient, and discussing with other team members." ASSESSMENT ASSESSMENT Assessment # Intractable abdominal pain likely due to colitis # PAMELA on CKD stage 4 likely hemodynamically mediated/VMN improved # status post bilateral knee replacement QUOC DIAZ RESIDENT Jan 02, 2025 16:32
== END 2025-01-02 14:12 | disposition home or self-care (01) | DRG 391 ==
LOC: ER 12:23 → OVERFLOW 16:34 → WEST WING 17:40
PROVIDERS: ADMIT Student in an Organized Health Care Education/Training Program; ATTEND Student in an Organized Health Care Education/Training Program
DX: K52.9 Noninfective gastroenteritis and colitis, unspecified (principal); N17.0 Acute kidney failure with tubular necrosis; N18.4 Chronic kidney disease, stage 4 (severe); I12.9 Hypertensive chronic kidney disease with stage 1 through stage 4 chronic kidney disease, or unspecified chronic kidney disease; Z88.1 Allergy status to other antibiotic agents; Z79.2 Long term (current) use of antibiotics; Z79.82 Long term (current) use of aspirin; Z96.653 Presence of artificial knee joint, bilateral; Z87.442 Personal history of urinary calculi
CPT/HCPCS: 36415; 74176; 76856; 80048; 80053; 81001; 82270; 82962; 85025; 85048; 87045; 87081; 87427; 87493; 96361; 96365; 96367; 96375; G0378; J2405; J3490